=== PATIENT | male | born 1985 | race Caucasian/White ===

== ENCOUNTER 2019-12-31 23:53 | Emergency (ER) | payer SELFPAY ==
[2020-01-01 00:01] VITALS: BP 171/86; PULSE 92; RESP 18; TEMP 36.7; O2SAT 99
--- NOTE | 2020-01-01 01:29 | CTR_ITS ---
PROCEDURE INFORMATION: Exam: CT Abdomen And Pelvis With Contrast Exam date and time: 01/01/2020 1:46 AM Age: 34 years old Clinical indication: Abdominal pain; Generalized; Prior surgery; Surgery date: 6+ months; Surgery type: Gb/ stents in pancreas TECHNIQUE: Imaging protocol: Computed tomography of the abdomen and pelvis with intravenous contrast. Radiation optimization: All CT scans at this facility use at least one of these dose optimization techniques: automated exposure control; mA and/or kV adjustment per patient size (includes targeted exams where dose is matched to clinical indication); or iterative reconstruction. Contrast material: OMNI 300; Contrast volume: 95 ml; Contrast route: INTRAVENOUS (IV); COMPARISON: CT abdomen pelvis w con* [id number] 07/30/2018 9:42 PM RADIATION DOSE METRICS: Total DLP (mGy-cm): 1604.29 FINDINGS: Liver: Normal. No mass. Gallbladder and bile ducts: The gallbladder has been removed. No biliary ductal dilatation. Pancreas: Normal. No ductal dilation. Spleen: Normal. No splenomegaly. Adrenals: Normal. No mass. Kidneys and ureters: Normal. No hydronephrosis. Stomach and bowel: Mild dilatation of a few loops of small bowel is observed in the lower abdomen, which is nonspecific. No intestinal obstruction. Air and stool are present in the colon. Appendix: No evidence of appendicitis. Intraperitoneal space: Unremarkable. No free air. No significant fluid collection. Vasculature: Unremarkable. No abdominal aortic aneurysm. Lymph nodes: Unremarkable. No enlarged lymph nodes. Bladder: Unremarkable as visualized. Reproductive: Unremarkable as visualized. Bones/joints: Unremarkable. No acute fracture. Soft tissues: Unremarkable. CT/CT abdomen pelvis w con* [id number] IMPRESSION: No acute abnormality is seen in the abdomen or pelvis Radiation Dose CTDIVOL = (mGy): DLP = 1604.29 (mGy-cm)
[2020-01-01 01:44] LABS: Basophils % 0.6 %; Eosinophils # 0.3 10^3/uL (0.0-0.8); Eosinophils % 3.9 %; Hematocrit 46.1 % (42.0-52.0); Lymphocytes # 2.2 10^3/uL (0.8-4.8); Lymphocytes % 29.7 %; Mean Corpuscular HGB Conc 32.5 g/dL (30.0-36.0); Mean Corpuscular Hemoglobin 29.1 pg (28.0-34.0); Mean Corpuscular Volume 89.3 fL (80-94); Mean Platelet Volume 10.6 fL (7.4-10.4); Monocytes # 0.7 10^3/uL (0.2-0.9); Monocytes % 9.4 %; Neutrophils # 4.07 10^3/uL (1.8-7.7); Neutrophils % 56.3 %; Nucleated Red Blood Cells % 0 %; Platelet Count 246 10^3/cmm (130-400); Red Blood Count 5.16 10^6/uL (4.1-5.3); Red Cell Distribution Width 11.9 % (12.1-15.1); White Blood Count 7.2 10^3/uL (4.0-10.0)
--- NOTE | 2020-01-01 01:45 | ED_ITS ---
HPI - Abdominal Pain General: Chief Complaint: Abdominal Pain Stated Complaint: abd pain Time Seen by Provider: 01/01/20 01:21 Source: patient Mode of arrival: ambulatory Limitations: no limitations History of Present Illness: HPI narrative: Gagandeep is a nice 34-year-old male who comes in complaining of 2 hours of epigastric pain. He states this feels like his pancreatitis that he has had several times in the past. 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 He had to have a stent placed in 2005 and it was done at a [facility] he is uncertain which hospital in [place]. He does not follow-up there on a regular basis but at times he will get flareups of his pancreatitis. So far he is unaware of anything that makes his symptoms better or worse. Patient denies any fevers, chills, nausea, vomiting, diarrhea, constipation, urinary symptoms or chest pain/shortness of breath. Associated Symptoms: Denies chills, coffee ground emesis, constipation, GI cramping, diarrhea, dysuria, fever(s), heartburn, hematochezia, hematuria, hematemesis, melena, nausea, syncope and vomiting Review of Systems Const: Denies: fever(s), chills, body aches, fatigue, malaise or diaphoresis Eyes: Denies: change in vision, blurry vision, blind spots, photophobia, eye discharge or eye redness ENMT: Denies: throat pain, odynophagia, hoarseness, swelling of lips/tongue, oral sores, ear or mastoid pain, ear discharge, change in hearing or nasal discharge Card: Denies: chest pain, palpitations, irregular heart rhythm, edema, lightheadedness, syncope, pre-syncope, dyspnea on exertion or orthopnea Resp: Denies: dyspnea, productive cough, non-productive cough, wheezing, hemoptysis or chest congestion GI: Reports: abdominal pain; Denies: nausea, vomiting, hematemesis, coffee ground emesis, heartburn, diarrhea, constipation, GI cramping, hematochezia or melena : Denies: flank pain, dysuria, urinary frequency, urinary urgency or hematuria Musc: Denies: neck pain, back pain, extremity pain, extremity swelling, joint pain, joint swelling, joint redness, joint warmth or joint stiffness Skin/Breast: Denies: rash, pruritus, erythema, skin tenderness or jaundice Neuro: Denies: headache(s), numbness in extremities, weakness in extremities, sensory changes, lack of coordination, difficulty walking, dizziness, vertigo, confusion, Slurred speech present or seizure-like activity Samy/Lymph: Denies: easy bruising, easy bleeding, petechiae, purpura or enlarged lymph nodes All/Imm: Denies: urticaria, throat swelling, tongue swelling, facial swelling or acute wheezing PFSH ED PFSH: Medical History Pancreatitis, recurrent Presence of pancreatic duct stent Surgical History S/P cholecystectomy Social History Current gender identity: Male Physical Exam Const: COMMON NORMALS: no acute distress, patient oriented x3, no limitations, healthy appearing and well nourished GENERAL APPEARANCE: cooperative, well kempt and well developed HENMT: COMMON NORMALS: normocephalic, atraumatic, external ears normal, EAC's normal and Normal external nose present HEAD & SCALP: normal to inspection, normocephalic and atraumatic FACE & SINUS: normal facial exam and face symmetric NOSE: Normal external nose present and Normal nares present EXTERNAL EAR: Yes external ears normal EXTERNAL AUDITORY CANAL: EAC's normal MOUTH: Normal oral and palatal mucosa present, lip normal and tongue normal Eye: COMMON NORMALS: Equal, round and reactive pupils present and conjunctivae normal GENERAL EYE: appearance normal, both eyes and all related structures ALIGNMENT: Yes alignment normal PERIORBITAL: periorbital findings normal EYELID: eyelids normal CONJUNCTIVA: Yes conjunctivae normal SCLERA: sclerae normal PUPIL: Yes Equal, round and reactive pupils present Neck/C-Spine: COMMON NORMALS: full ROM, no lymphadenopathy, supple, no meningeal signs and no JVD GENERAL: Yes normal visual inspection and Yes trachea midline Chest: COMMONS NORMALS: normal inspection of the chest and normal palpation of entire chest wall Resp: COMMON NORMALS: normal respiratory effort, No retractions and No use of accessory muscles EFFORT & INSPECTION: Yes able to speak in complete sentences and Yes symmetric chest movement AUSCULTATION: no crackles, no rales, no rhonchi and no wheezes Cardio: COMMON NORMALS: no JVD, regular rate, regular rhythm, S1 normal heart sound present and S2 normal heart sound present RATE: regular rate RHYTHM: regular rhythm HEART SOUNDS: S1 normal heart sound present, S2 normal heart sound present, no click, no gallops, no murmurs, no rubs and abnormal split S2 GI: COMMON NORMALS: Soft to palpation and No hepatosplenomegaly present PALPATION: Yes Soft to palpation, No Tenderness to palpation present (GI), No Guarding due to palpation present (GI), No Rigid due to palpation, Yes No hepatosplenomegaly present, No Hernia present, No Palpable mass present and No Pulsatile mass present : COMMON NORMALS: Yes no CVA tenderness BLADDER/KIDNEY EXAM: Yes no CVA tenderness Back/Pelvis: COMMON NORMALS: no CVA tenderness, thoracic and lumbar spine normal to inspection, no thoracic nor lumbar tenderness and thoraco-lumbar ROM normal Extremity: COMMON NORMALS: normal to inspection, full ROM, capillary refill normal, no joint enlargement, no clubbing, cyanosis or edema and no calf tenderness Neuro: COMMON NORMALS: patient oriented x3, CN's II-XII intact bilaterally, moves all extremities, no focal motor deficits and no sensory deficits noted MENINGEAL SIGNS: Yes no meningeal signs SPEECH: speech normal Psych: COMMON NORMALS: mental status grossly normal, Normal thought process present, cooperative, normal affect, speech normal and activity/motor behavior normal APPEARANCE: Yes well kempt SPEECH: Yes normal speech THOUGHT PROCESS: Normal thought process present Skin: COMMON NORMALS: no rashes or lesions noted, turgor normal, no jaundice, no petechiae and no mottling GENERAL SKIN EXAM: no rashes or lesions noted and turgor normal Course Vital Signs: Vital signs: Vital Signs Temperature 98.1 F 01/01/20 00:01 Pulse Rate 17 L 01/01/20 03:12 Respiratory Rate 77 H 01/01/20 03:12 Blood Pressure 153/98 01/01/20 03:12 Pulse Oximetry 99 01/01/20 03:12 MDM - Abdominal Pain MDM Narrative: Medical decision making narrative: Gagandeep is a 34-year-old male who comes in complaining of recurrent abdominal pain. He believes this is his pancreatitis pain. Patient has a normal lipase, normal labs and a normal CT at this time. He is reassured to hear this and actually feels better but he has received pain medication. He agrees to return should his symptoms change or worsen. He denies any chest pain or shortness of breath. I see no sign of a cute coronary syndrome, acute abdominal catastrophe or other problems at this time. He agrees that if his pain is even just mild but last more than next 8 to 12 hours he will return for recheck. Lab Data: Attestation: I reviewed the patient's lab results. Labs: Lab Results 01/01/20 01/01/20 01/01/20 Range/Units 01:35 01:35 01:35 WBC 7.2 (4.0-10.0) 10^3/ uL RBC 5.16 (4.1-5.3) 10^6/u L Hgb 15.0 (11.7-16.6) g/dL Hct 46.1 (42.0-52.0) % MCV 89.3 (80-94) fL MCH 29.1 (28.0-34.0) pg MCHC 32.5 (30.0-36.0) g/dL RDW 11.9 L (12.1-15.1) % Plt Count 246 (130-400) 10^3/c mm MPV 10.6 H (7.4-10.4) fL Neut % (Auto) 56.3 % Lymph % (Auto) 29.7 % Taylor % (Auto) 9.4 % Eos % (Auto) 3.9 % Baso % (Auto) 0.6 % Neut # (Auto) 4.07 (1.8-7.7) 10^3/u L Lymph # (Auto) 2.2 (0.8-4.8) 10^3/u L Taylor # (Auto) 0.7 (0.2-0.9) 10^3/u L Eos # (Auto) 0.3 (0.0-0.8) 10^3/u L Baso # (Auto) 0.0 (0.0-0.1) 10^3/u L Nucleated RBC % (a uto) 0 % Nucleated RBCs # 0.0 /100WBC Sodium 140 (136-145) mmol/L Potassium 3.9 (3.5-5.1) mmol/L Chloride 104 (98-107) mmol/L Carbon Dioxide 26 (22-29) mmol/L Anion Gap 13.9 (5-19) BUN 12 (6-20) mg/dL Creatinine 1.0 (0.7-1.2) mg/dL GFR Calculation 86.6 L (90-130) mL/min Glucose 106 (65-115) mg/dL Calculated Osmolal ity 287 (285-295) mOsm/k g Lactic Acid 1.1 (0.5-2.2) mmol/L Calcium 9.7 (8.5-10.5) mg/dL Magnesium 2.1 (1.7-2.3) mg/dL Total Bilirubin 0.6 (0.15-1.2) mg/dL AST 28 (0-40) U/L ALT 22 (0-41) U/L Alkaline Phosphata se 100 (40-130) IU/L Total Protein 7.4 (6.6-8.7) g/dL Albumin 5.0 (3.5-5.2) g/dL Globulin 2.4 (1.3-4.6) g/dL Triglycerides 73 (0-150) mg/dL Lipase 22 (13-60) U/L Urine Color (Yellow) Urine Appearance (CLEAR) Urine pH (5-7) Ur Specific Gravit y (1.005-1.030) Urine Protein (Negative) Urine Glucose (UA) (Normal) Urine Ketones (Negative) Urine Blood (Negative) Urine Nitrate (Negative) Urine Bilirubin (NEGATIVE) Urine Urobilinogen (Negative) mg/dL Ur Leukocyte Soha ase (Negative) Urine RBC (0-2) /hpf Urine WBC (0-5) /hpf Ur Squamous Epith Cells (0-5) Ur Transition Epit h Cell /hpf Ur Renal Epithelia l Cell /hpf Calcium Oxalate Cr ystal /hpf Urine Bacteria (NONE) Urine Sperm Ur Oval Fat Bodies Ethyl Alcohol < 10 (0-10) mg/dL 01/01/20 Range/Units 01:45 WBC (4.0-10.0) 10^3/ uL RBC (4.1-5.3) 10^6/u L Hgb (11.7-16.6) g/dL Hct (42.0-52.0) % MCV (80-94) fL MCH (28.0-34.0) pg MCHC (30.0-36.0) g/dL RDW (12.1-15.1) % Plt Count (130-400) 10^3/c mm MPV (7.4-10.4) fL Neut % (Auto) % Lymph % (Auto) % Taylor % (Auto) % Eos % (Auto) % Baso % (Auto) % Neut # (Auto) (1.8-7.7) 10^3/u L Lymph # (Auto) (0.8-4.8) 10^3/u L Taylor # (Auto) (0.2-0.9) 10^3/u L Eos # (Auto) (0.0-0.8) 10^3/u L Baso # (Auto) (0.0-0.1) 10^3/u L Nucleated RBC % (a uto) % Nucleated RBCs # /100WBC Sodium (136-145) mmol/L Potassium (3.5-5.1) mmol/L Chloride (98-107) mmol/L Carbon Dioxide (22-29) mmol/L Anion Gap (5-19) BUN (6-20) mg/dL Creatinine (0.7-1.2) mg/dL GFR Calculation (90-130) mL/min Glucose (65-115) mg/dL Calculated Osmolal ity (285-295) mOsm/k g Lactic Acid (0.5-2.2) mmol/L Calcium (8.5-10.5) mg/dL Magnesium (1.7-2.3) mg/dL Total Bilirubin (0.15-1.2) mg/dL AST (0-40) U/L ALT (0-41) U/L Alkaline Phosphata se (40-130) IU/L Total Protein (6.6-8.7) g/dL Albumin (3.5-5.2) g/dL Globulin (1.3-4.6) g/dL Triglycerides (0-150) mg/dL Lipase (13-60) U/L Urine Color Dark yellow (Yellow) Urine Appearance Clear (CLEAR) Urine pH 5 (5-7) Ur Specific Gravit y 1.030 (1.005-1.030) Urine Protein Neg (Negative) Urine Glucose (UA) Norm (Normal) Urine Ketones Negative (Negative) Urine Blood Neg (Negative) Urine Nitrate Negative (Negative) Urine Bilirubin Neg (NEGATIVE) Urine Urobilinogen Norm (Negative) mg/dL Ur Leukocyte Soha ase Negative (Negative) Urine RBC 0-4 H (0-2) /hpf Urine WBC None (0-5) /hpf Ur Squamous Epith Cells 5-10 H (0-5) Ur Transition Epit h Cell None /hpf Ur Renal Epithelia l Cell 0 /hpf Calcium Oxalate Cr ystal 5-10 H /hpf Urine Bacteria 1+ H (NONE) Urine Sperm 1+ Ur Oval Fat Bodies None Ethyl Alcohol (0-10) mg/dL Imaging Data ^: CT Abd/Pel: Radiologist's impression: [place] [address] CT Scan Report Signed Patient: Gagandeep Gonzalez Unit #: [id number] : 1985 Age/Sex: 34 / M ADM Date: 12/31/19 Loc: ER Room/Bed: Attending Dr: Ordering Provider/Ordering MD: Mercedes Vallejo DO Date of Service: 01/01/20 Procedure(s): CT abdomen pelvis w con* [id number] Accession Number(s): [id number] Report Number: [id number] PROCEDURE INFORMATION: Exam: CT Abdomen And Pelvis With Contrast Exam date and time: 01/01/2020 1:46 AM Age: 34 years old Clinical indication: Abdominal pain; Generalized; Prior surgery; Surgery date: 6+ months; Surgery type: Gb/ stents in pancreas TECHNIQUE: Imaging protocol: Computed tomography of the abdomen and pelvis with intravenous contrast. Radiation optimization: All CT scans at this facility use at least one of these dose optimization techniques: automated exposure control; mA and/or kV adjustment per patient size (includes targeted exams where dose is matched to clinical indication); or iterative reconstruction. Contrast material: OMNI 300; Contrast volume: 95 ml; Contrast route: INTRAVENOUS (IV); COMPARISON: CT abdomen pelvis w con* [id number] 07/30/2018 9:42 PM RADIATION DOSE METRICS: Total DLP (mGy-cm): 1604.29 FINDINGS: Liver: Normal. No mass. Gallbladder and bile ducts: The gallbladder has been removed. No biliary ductal dilatation. Pancreas: Normal. No ductal dilation. Spleen: Normal. No splenomegaly. Adrenals: Normal. No mass. Kidneys and ureters: Normal. No hydronephrosis. Stomach and bowel: Mild dilatation of a few loops of small bowel is observed in the lower abdomen, which is nonspecific. No intestinal obstruction. Air and stool are present in the colon. Appendix: No evidence of appendicitis. Intraperitoneal space: Unremarkable. No free air. No significant fluid collection. Vasculature: Unremarkable. No abdominal aortic aneurysm. Lymph nodes: Unremarkable. No enlarged lymph nodes. Bladder: Unremarkable as visualized. Reproductive: Unremarkable as visualized. Bones/joints: Unremarkable. No acute fracture. Soft tissues: Unremarkable. CT/CT abdomen pelvis w con* [id number] IMPRESSION: No acute abnormality is seen in the abdomen or pelvis Radiation Dose CTDIVOL = (mGy): DLP = 1604.29 (mGy-cm) Dictated By: Onur Vega MD Signed By: Onur Vega MD Signed Date/Time: 01/01/20254 DD/ 2 Discharge Plan Discharge Patient Disposition: Home, Self-Care Clinical Impression: Abdominal pain Qualifiers: Abdominal location: epigastric Qualified Code(s): R10.13 - Epigastric pain Condition: Stable Discharge Orders: Discharge Order (Routine); Ordered 01/01/20 Ordered By: Mercedes Vallejo Referrals: Nicko Donis MD [Physician] - 1-3 days Discharge Diet: Advance as tolerated and Clear Liquid Discharge Activity: Resume usual activity Patient Instructions: Abdominal Pain (ED) Activity Restrictions/Additional Instructions: Please return to the ER immediately for any of the signs or symptoms listed on your discharge instruction sheets, worsening/changing of your symptoms, you are not getting better as quickly as expected, or for ANY other cause or concerns. If you are still having pain beyond the next 8 to 10 hours return to the ER for recheck. Discharge Date/Time: 01/01/20 03:15 Coding Level of Care Code ED Scutcher Tender for Chg Fwd Exam Comprehensive
[2020-01-01 01:46] VITALS: RESP 17
[2020-01-01] MEDS: ondansetron 2 mg/ML SDV 2 mL 4 MG IVP (01:46)
[2020-01-01] MEDS: morphine 4 mg/mL SDV 1 mL IVP (01:46)
[2020-01-01] MEDS: sodium chloride 0.9% 1,000 ML 100 ML IV (01:47)
[2020-01-01] MEDS: sodium chloride 0.9% 1,000 ML 999 ML IV (01:47)
[2020-01-01 01:52] VITALS: BP 143/107; PULSE 93; RESP 22; O2SAT 97
[2020-01-01] MEDS: iohexol 300 mg/mL 100 mL Btl IV (02:02)
[2020-01-01 02:05] LABS: Alanine Aminotransferase 22 U/L (0-41); Alkaline Phosphatase 100 IU/L (40-130); Anion Gap 13.9 (5-19); Aspartate Amino Transferase 28 U/L (0-40); Blood Urea Nitrogen 12 mg/dL (6-20); Calcium 9.7 mg/dL (8.5-10.5); Carbon Dioxide 26 mmol/L (22-29); Chloride 104 mmol/L (98-107); Globulin 2.4 g/dL (1.3-4.6); Glomerular Filtration Rate 86.6 mL/min (90-130); Glucose 106 mg/dL (65-115); Lipase 22 U/L (13-60); Magnesium 2.1 mg/dL (1.7-2.3); Osmolality Calculated 287 mOsm/kg (285-295); Potassium 3.9 mmol/L (3.5-5.1); Sodium 140 mmol/L (136-145); Total Bilirubin 0.6 mg/dL (0.15-1.2); Total Protein 7.4 g/dL (6.6-8.7); Triglycerides 73 mg/dL (0-150)
[2020-01-01 02:13] LABS: Lactic Sepsis W/Reflex 1.1 mmol/L (0.5-2.2)
[2020-01-01 02:18] LABS: Alcohol Level < 10 mg/dL (0-10)
[2020-01-01 02:43] LABS: Bilirubin Urine Neg (NEGATIVE); Blood Urine Neg (Negative); Glucose Urine UA Norm (Normal); Ketones Urine Negative (Negative); Leukocyte Esterase Urine Negative (Negative); Nitrate Urine Negative (Negative); Protein Urine Neg (Negative); Urine Appearance Clear (CLEAR); Urine Color Dark Yellow (Yellow); Urobilinogen Urine Norm (Negative); pH Urine 5 (5-7)
[2020-01-01 02:49] VITALS: BP 153/91; PULSE 87; RESP 17; O2SAT 97
[2020-01-01 02:52] LABS: RBC Urine 0-4 /hpf (0-2); Renal Epithelial Cells Urine 0 /hpf
[2020-01-01 02:53] LABS: Bacteria Urine 1+
[2020-01-01 02:54] LABS: Add Urine Culture? No; Sperm Urine 1+
[2020-01-01 03:12] VITALS: BP 153/98; PULSE 17; RESP 77; O2SAT 99
== END 2020-01-01 03:15 | disposition home or self-care (01) ==
PROVIDERS: Emergency Provider Emergency Medicine
DX: R10.13 Epigastric pain (principal)
CPT/HCPCS: 12345; 74177; 80053; 80307; 81001; 83605; 83690; 83735; 84478; 85025; 96361; 96374; 96375; 99283; J2270; J2405; J7030; Q9967

== ENCOUNTER → 2020-03-10 13:16 | Outpatient (BNVA) | payer OTHER, SELFPAY | PROVIDERS: Visit Provider Nurse Practitioner | DX: Z20.828 Contact with and (suspected) exposure to other viral communicable diseases (principal) | CPT/HCPCS: 87635 ==

== ENCOUNTER 2022-05-17 10:23 | Emergency (ER) | payer SELFPAY ==
[2022-05-17 10:38] VITALS: BP 163/85; PULSE 74; RESP 14; TEMP 36.8; O2SAT 97; BMI 33.7
--- NOTE | 2022-05-17 11:19 | W.ED.DENTAL ---
HPI - Dental/Oral General: Chief complaint: Dental/Oral Stated complaint: tooth pain Time Seen by Provider: 05/17/22 10:57 History of Present Illness: Patient is a 36-year-old male who comes to the ED with dental pain. Symptoms started 4 to 5 days ago. Patient said he has had the same dental pain a little over a month ago and was put on antibiotic his symptoms improved. He is currently trying to get set up with a dentist. Dental pain is rated a 2 out of 10 and is located in the left lower jaw. He reports some mild swelling on his left lower mandible. Denies any other symptoms. Associated symptoms: Denies fever(s) or odynophagia Review of Systems Const: Denies: fever(s), chills or fatigue Eyes: Denies: change in vision or eye discomfort ENMT: Reports: dental pain; Denies: throat pain, odynophagia, nasal discharge or nasal congestion Card: Denies: chest pain, palpitations, edema, swelling of feet/ankles, dyspnea on exertion or orthopnea Resp: Denies: dyspnea, productive cough or non-productive cough GI: Denies: abdominal pain, nausea, vomiting, diarrhea, constipation or hematochezia : Denies: flank pain, difficulty urinating, dysuria or hematuria Musc: Denies: neck pain, back pain or extremity swelling Skin/Breast: Denies: rash or new lesions Neuro: Denies: headache(s), numbness in extremities or weakness in extremities [facility] ED PFSH: Medical History Pancreatitis, recurrent Presence of pancreatic duct stent Surgical History S/P cholecystectomy Social History Current gender identity: Male Physical Exam Const: COMMON NORMALS: no acute distress, patient oriented x3 and alert GENERAL APPEARANCE: cooperative and comfortable HENMT: COMMON NORMALS: normocephalic HEAD & SCALP: normocephalic FACE & SINUS: edema on the left mandible MOUTH: Normal oral and palatal mucosa present TEETH & GINGIVA: Yes poor dentition THROAT: posterior oropharynx normal and uvula midline Neck/C-Spine: COMMON NORMALS: supple GENERAL: Yes normal visual inspection Resp: COMMON NORMALS: normal respiratory effort, No retractions, No use of accessory muscles and clear to auscultation bilaterally AUSCULTATION: clear to auscultation bilaterally Cardio: COMMON NORMALS: regular rate, regular rhythm, S1 normal heart sound present, S2 normal heart sound present, No gallops present (Cardio), No clicks present (Cardio), No murmurs present (Cardio) and Peripheral pulses 2+ throughout RATE: regular rate RHYTHM: regular rhythm HEART SOUNDS: S1 normal heart sound present and S2 normal heart sound present PERIPHERAL PULSES: Peripheral pulses 2+ throughout GI: COMMON NORMALS: Normal to inspection, nondistended, normoactive bowel sounds present, Soft to palpation, non-tender and no masses PALPATION: Yes Soft to palpation : COMMON NORMALS: Yes no CVA tenderness BLADDER/KIDNEY EXAM: Yes no CVA tenderness Back/Pelvis: COMMON NORMALS: no CVA tenderness Extremity: COMMON NORMALS: normal to inspection Neuro: COMMON NORMALS: patient oriented x3 SENSORIUM/ORIENTATION: Yes alert GAIT: Yes Normal gait present Skin: GENERAL SKIN EXAM: dry skin Course Vital Signs: Vital signs: Vital Signs Temperature 98.2 F 05/17/22 10:38 Pulse Rate 84 05/17/22 11:48 Respiratory Rate 16 05/17/22 11:48 Blood Pressure 165/112 05/17/22 11:48 Pulse Oximetry 95 05/17/22 11:48 Oxygen Delivery Me thod 05/17/22 10:38 [facility] - Dental/Oral Medical Decision Making Patient is a 36-year-old male who comes to the ED with dental pain. Symptoms started 4 to 5 days ago. Patient said he has had the same dental pain a little over a month ago and was put on antibiotic his symptoms improved. He is currently trying to get set up with a dentist. Dental pain is rated a 2 out of 10 and is located in the left lower jaw. He reports some mild swelling on his left lower mandible. Denies any other symptoms. Vitals are stable. Patient appears nontoxic and in no acute distress or pain. He has poor dentition with left mandible mild swelling, but the rest of exam is benign. Patient was diagnosed with dental infection and was discharged home. He was sent home with a prescription for clindamycin and ibuprofen 800 mg to help with pain. Follow-up with dentist as soon as possible for further evaluation. Patient understood and agreed with plan. Discharge Plan Discharge Patient Disposition: Home Clinical Impression: Dental infection Condition: Stable Prescriptions: New clindamycin HCl 150 mg capsule 300 mg PO QID 7 Days Qty: 56 0RF ibuprofen 800 mg tablet 800 mg PO Q8H PRN (Reason: pain) Qty: 20 0RF No Action lisinopril 5 mg tablet 5 mg PO DAILY hydrochlorothiazide 12.5 mg tablet 12.5 mg PO DAILY amoxicillin-pot clavulanate 875-125 mg tablet 1 tab PO BID 7 Days Qty: 14 0RF Discharge Orders: Discharge ED (Routine); Ordered 05/17/22 Ordered By: Jack Conte Discharge Diet: Regular Discharge Activity: Increase activity as tolerated Patient Instructions: Dental Abscess (ED) Activity Restrictions/Additional Instructions: Follow-up with dentist as soon as possible to have dental pain further evaluated. Take medications as prescribed. Return to the ER or your medical provider if condition worsens. Please read and understand discharge instructions. Thank you for choosing [facility] for your healthcare needs today. Please realize this is an emergency room and that we are providing you with a medical screening exam and this may not be complete and all inclusive of all the testing and or work up that you may need to determine your ailment or severity of your illness. It is very important that you follow up as instructed or that you return to the Emergency Department should you have concerns or if your condition changes or worsens in any way. Stand Alone Forms: Work/School Release Coding Level of Care Code ED Flight Information Expediter for [employer] Exam Comprehensive
[2022-05-17 11:48] VITALS: BP 165/112; PULSE 84; RESP 16; O2SAT 95
== END 2022-05-17 11:49 | disposition home or self-care (01) ==
PROVIDERS: Emergency Provider Physician Assistant
DX: K04.7 Periapical abscess without sinus (principal)
CPT/HCPCS: 99283

== ENCOUNTER 2022-07-09 16:40 | Emergency (ER) | payer SELFPAY ==
[2022-07-09 16:45] VITALS: BP 134/70; PULSE 88; RESP 16; TEMP 36.6; O2SAT 97
--- NOTE | 2022-07-09 22:45 | W.ED.GENADLT ---
HPI - General Adult General: Chief complaint: General Medical Stated complaint: N/V Time Seen by Provider: 07/09/22 17:09 History of Present Illness: Patient is in today for a note to go back to work. He reports that this morning he woke up was nauseated did vomit 1 time. He reports he is felt better since after vomiting; however he had already called into work. He reports that they require a note for him to return tomorrow. He denies any further symptoms. He denies fever, chills. He is eating and drinking without issue. Associated symptoms: Deny chest pain, dyspnea, headache(s), nausea, palpitations, syncope or vomiting Review of Systems Const: Denies: fever(s), chills or body aches Eyes: Denies: change in vision or blurry vision ENMT: Denies: throat pain Card: Denies: chest pain, palpitations, irregular heart rhythm, lightheadedness or syncope Resp: Denies: dyspnea, productive cough or non-productive cough GI: Reports: other (Reports nausea and 1 episode of emesis first thing this morning); Denies: abdominal pain, nausea or vomiting : Denies: flank pain, dysuria, urinary frequency, urinary urgency or urinary hesitancy Musc: Denies: neck pain or back pain Neuro: Denies: headache(s), numbness in extremities or weakness in extremities PFS ED PFSH: Medical History Pancreatitis, recurrent Presence of pancreatic duct stent Surgical History S/P cholecystectomy Social History Current gender identity: Male Physical Exam Const: COMMON NORMALS: no acute distress, patient oriented x3 and alert GENERAL APPEARANCE: cooperative ORIENTATION/CONSCIOUSNESS: Yes awake, Yes oriented to person, Yes oriented to place and Yes oriented to time HENMT: COMMON NORMALS: EAC's normal and TM's normal bilaterally EXTERNAL AUDITORY CANAL: EAC's normal TYMPANIC MEMBRANE: TM's normal bilaterally MOUTH: Normal oral and palatal mucosa present THROAT: posterior oropharynx normal Eye: COMMON NORMALS: Equal, round and reactive pupils present, EOMs intact bilaterally and conjunctivae normal GENERAL EYE: appearance normal, both eyes and all related structures ALIGNMENT: Yes alignment normal CONJUNCTIVA: Yes conjunctivae normal SCLERA: sclerae normal PUPIL: Yes Equal, round and reactive pupils present Neck/C-Spine: COMMON NORMALS: full ROM Resp: COMMON NORMALS: normal respiratory effort, No retractions, No use of accessory muscles and clear to auscultation bilaterally EFFORT & INSPECTION: Yes symmetric chest movement AUSCULTATION: clear to auscultation bilaterally Cardio: COMMON NORMALS: regular rate, regular rhythm, S1 normal heart sound present and S2 normal heart sound present RATE: regular rate RHYTHM: regular rhythm HEART SOUNDS: S1 normal heart sound present and S2 normal heart sound present GI: COMMON NORMALS: Normal to inspection, nondistended, normoactive bowel sounds present, Soft to palpation, non-tender, No hepatosplenomegaly present, no masses and no bruits INSPECTION: Yes normal to inspection PALPATION: Yes Soft to palpation and Yes No hepatosplenomegaly present : COMMON NORMALS: Yes no CVA tenderness BLADDER/KIDNEY EXAM: Yes no CVA tenderness Back/Pelvis: COMMON NORMALS: no CVA tenderness Neuro: COMMON NORMALS: patient oriented x3 SENSORIUM/ORIENTATION: Yes alert, Yes oriented to person, Yes oriented to place and Yes oriented to time Psych: COMMON NORMALS: cooperative Course Vital Signs: Vital signs: Vital Signs Temperature 97.9 F 07/09/22 16:45 Pulse Rate 88 07/09/22 16:45 Respiratory Rate 16 07/09/22 16:45 Blood Pressure 134/70 07/09/22 16:45 Pulse Oximetry 97 07/09/22 16:[address] [facility] - General Adult Medical Decision Making Patient is in for an episode of nausea and vomiting he had just upon awakening this morning. He reports that after he vomited he has felt fine and had no other issues with nausea or vomiting. He denies fever or chills. He states that his work requires a note for him to return tomorrow. He is requesting that he be allowed to return to work tomorrow. Vital signs are stable patient is in no acute distress. Provided him with a work note allowing him to return to work now. Advised him to follow-up with his primary care provider or return to the ER as needed for new or returning symptoms Discharge Plan Discharge Patient Disposition: Home Clinical Impression: Worried well Condition: Stable Prescriptions: No Action lisinopril 5 mg tablet 5 mg PO DAILY hydrochlorothiazide 12.5 mg tablet 12.5 mg PO DAILY amoxicillin-pot clavulanate 875-125 mg tablet 1 tab PO BID 7 Days Qty: 14 0RF ibuprofen 800 mg tablet 800 mg PO Q8H PRN (Reason: pain) Qty: 20 0RF Discharge Orders: Discharge ED (Routine); Ordered 07/09/22 Ordered By: Kelly Liu Discharge Diet: Usual diet Discharge Activity: Resume usual activity Stand Alone Forms: Work/School Release 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
== END 2022-07-09 17:31 | disposition home or self-care (01) ==
PROVIDERS: Emergency Provider Nurse Practitioner Family
DX: Z03.89 Encounter for observation for other suspected diseases and conditions ruled out (principal)
CPT/HCPCS: 99282

== ENCOUNTER 2022-10-23 12:02 | Emergency (ER) | payer OTHER, SELFPAY ==
[2022-10-23 12:32] VITALS: BP 162/82; PULSE 74; RESP 18; TEMP 36.7; O2SAT 99; BMI 33.2
--- NOTE | 2022-10-23 12:43 | XRR_ITS ---
PROCEDURE INFORMATION: Exam: XR Left Knee Exam date and time: 10/23/2022 12:46 PM Age: 37 years old Clinical indication: Pain; Knee; Left TECHNIQUE: Imaging protocol: Radiologic exam of the left knee. Views: 3 views. COMPARISON: No relevant prior studies available. FINDINGS: Bones/joints: No fracture. No dislocation. There is tricompartmental osteoarthritis, most prominently in the lateral femoral tibial joint compartment. No joint effusion evident. Soft tissues: No acute soft tissue abnormality. XR/XR knee LT 3V* [id number] IMPRESSION: Osteoarthritis.
--- NOTE | 2022-10-23 13:01 | W.ED.EXTPRO ---
HPI - Extremity Problem General: Chief complaint: Extremity Injury, Lower Stated complaint: left knee pain Time Seen by Provider: 10/23/22 12:41 Source: patient Mode of arrival: ambulatory History of Present Illness: 37-year-old male presents emergency room planing of left knee pain. He strained the knee this morning thought he had potentially dislocated he has been able to walk on it. Prior to that he says he had knee pain for several months. He cannot describe the particular injury very well. He denies lacerations or falls. No previous injury to the knee. MD Complaint: joint pain Onset (ago): month(s) Pain Consistency: constant Quality: aching Relieving factors: nothing Exacerbating factors: nothing Associated symptoms: Deny arthralgias, chest pain, fever(s), myalgias, rash or short of breath Review of Systems Const: Denies: fever(s) or chills ENMT: Denies: throat pain, ear or mastoid pain, nasal discharge or nasal congestion Card: Denies: chest pain Resp: Denies: dyspnea, productive cough or non-productive cough GI: Denies: abdominal pain, nausea, vomiting, hematemesis, coffee ground emesis, diarrhea, constipation, bloating, hematochezia or melena : Denies: flank pain, dysuria, urinary frequency or urinary urgency Skin/Breast: Denies: rash PFSH ED PFSH: Medical History Pancreatitis, recurrent Presence of pancreatic duct stent Surgical History S/P cholecystectomy Social History Current gender identity: Male Physical Exam Const: GENERAL APPEARANCE: cooperative and comfortable ORIENTATION/CONSCIOUSNESS: Yes awake, Yes oriented to person, Yes oriented to place and Yes oriented to time HENMT: COMMON NORMALS: normocephalic, atraumatic and hearing grossly normal bilaterally HEAD & SCALP: normocephalic and atraumatic Resp: COMMON NORMALS: normal respiratory effort, No retractions, No use of accessory muscles and clear to auscultation bilaterally AUSCULTATION: clear to auscultation bilaterally Cardio: COMMON NORMALS: regular rate, regular rhythm and No murmurs present (Cardio) RATE: regular rate RHYTHM: regular rhythm Extremity: COMMON NORMALS: normal to inspection, capillary refill normal, no clubbing, cyanosis or edema, no calf tenderness and no pedal edema OTHER: Examination left knee no ligamentous instability or laxity. No joint deformity drawer and Avril's test are negative. He has some bruising in the anterior lindsey which she states he gets from work. No lacerations no open injuries or sores. Neuro: SENSORIUM/ORIENTATION: Yes oriented to person, Yes oriented to place and Yes oriented to time Skin: COMMON NORMALS: no rashes or lesions noted GENERAL SKIN EXAM: no rashes or lesions noted Course Vital Signs: Vital signs: Vital Signs Temperature 98.0 F 10/23/22 12:32 Pulse Rate 74 10/23/22 12:32 Respiratory Rate 18 10/23/22 12:32 Blood Pressure 162/82 10/23/22 12:32 Pulse Oximetry 99 10/23/22 12:32 Oxygen Delivery Me thod Room Air 10/23/22 12:32 MDM - Extremity (Nontraumatic) Medical Decision Making No obvious deformity. Review of x-ray there is no acute fracture there is narrowing of the joint space. No evidence of DVT no significant edema or swelling. No excessive pain with passive range of motion at the ankle. We will discharge patient home anti-inflammatories set up for primary care. Lab Data Radiology Impressions Knee X-Ray 10/23/22 12:43 IMPRESSION: Osteoarthritis. Discharge Plan Discharge Patient Disposition: Home Clinical Impression: Strain of left knee Condition: Stable Prescriptions: New diclofenac sodium 75 mg tablet,delayed release (DR/EC) 75 mg PO Q12H PRN (Reason: pain) Qty: 20 0RF Discharge Orders: Discharge ED (Routine); Ordered 10/23/22 Ordered By: Jignesh Cotton Discharge Diet: Usual diet Discharge Activity: Resume usual activity Patient Instructions: Opioid Safety, Pain Management Activity Restrictions/Additional Instructions: You are seen today for left knee pain. Your x-ray showed significant narrowing of the medial compartment of the left knee but there is no evidence of fracture. Prescription given for anti-inflammatories Case management will help you arrange for follow-up with a primary care physician. 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
--- NOTE | 2022-10-25 11:18 | PC.NURSE ---
CM attempted to contact patient to set him up with a PCP. Patient did not answer. Left a message for him to return call.
== END 2022-10-23 13:25 | disposition home or self-care (01) ==
PROVIDERS: Emergency Provider Family Medicine
DX: S86.912A Strain of unspecified muscle(s) and tendon(s) at lower leg level, left leg, initial encounter (principal); X58.XXXA Exposure to other specified factors, initial encounter
CPT/HCPCS: 73562; 99283

== ENCOUNTER 2023-01-22 09:50 | Emergency (ER) | payer SELFPAY ==
--- NOTE | 2023-01-22 10:15 | W.ED.ABDPA2 ---
HPI - Abdominal Pain General: Chief Complaint: Abdominal Pain Stated Complaint: nausea, abd pain Time Seen by Provider: 01/22/23 10:08 History of Present Illness: Mr. Montes De Oca is a 37-year-old gentleman with history of recurrent pancreatitis and pancreatic stents presenting to the emergency department for evaluation of abdominal pain. Notes gradually worsening symptoms over some weeks. Initially mild symptoms worse with eating however it subsequently become more constant and more severe limiting his ability to eat and drink. Has had nausea and occasional vomiting. Has pain first thing in the morning and throughout the day. Does notice worse pain though not immediately with eating but shortly after. Moderate to severe in intensity. No other specific changes in health, exacerbating, or alleviating factors identified. Onset (ago): week(s) Pain Consistency: other (Worsening) Location: Epigastric Severity: moderate Quality: stabbing and sharp Exacerbating factors: eating Associated Symptoms: Reports nausea, poor appetite and vomiting Review of Systems General: Reports: 10 or more systems reviewed and unremarkable except in HPI and below GI: Reports: nausea and vomiting PFSH ED PFSH: Medical History Pancreatitis, recurrent Presence of pancreatic duct stent Psychiatric care Surgical History S/P cholecystectomy Social History Current gender identity: Male Physical Exam Const: COMMON NORMALS: alert GENERAL APPEARANCE: cooperative and well developed HENMT: COMMON NORMALS: normocephalic and atraumatic HEAD & SCALP: normocephalic and atraumatic Eye: COMMON NORMALS: conjunctivae normal CONJUNCTIVA: Yes conjunctivae normal SCLERA: sclerae normal Neck/C-Spine: COMMON NORMALS: supple GENERAL: Yes trachea midline Resp: COMMON NORMALS: clear to auscultation bilaterally EFFORT & INSPECTION: Yes able to speak in complete sentences AUSCULTATION: clear to auscultation bilaterally Cardio: COMMON NORMALS: regular rate and regular rhythm RATE: regular rate RHYTHM: regular rhythm GI: COMMON NORMALS: Soft to palpation PALPATION: Yes Soft to palpation, Yes Tenderness to palpation present (GI), No Guarding due to palpation present (GI) and No Rigid due to palpation Extremity: GENERAL: Yes normal exam except as noted and No edema Neuro: COMMON NORMALS: moves all extremities SENSORIUM/ORIENTATION: Yes alert and No Orientation impaired Psych: COMMON NORMALS: mental status grossly normal and Normal thought process present THOUGHT PROCESS: Normal thought process present Course Vital Signs: Vital signs: Vital Signs Temperature 97.5 F L 01/22/23 10:32 Pulse Rate 70 01/22/23 10:32 Respiratory Rate 16 01/22/23 10:32 Blood Pressure 145/76 01/22/23 10:32 Pulse Oximetry 100 01/22/23 10:32 Oxygen Delivery Me thod Room Air 01/22/23 10:32 MDM - Abdominal Pain Medical Decision Making 37-year-old gentleman presenting with abdominal symptoms. Tenderness on exam with no evidence of acute surgical abdomen. Nontoxic. No significant hematologic or metabolic abnormalities to explain symptoms. No UTI CT with enhancing gastric mucosal lesion. Discussed with surgery on-call and patient appropriate for outpatient referral. Treated with antiemetic, GI cocktail, Protonix and improved. The results of ED evaluation were discussed with the patient including prescriptions and/or symptomatic cares (if applicable) including appropriate and responsible use, followup plan, and return precautions. The patient verbalized understanding and felt safe for discharge. Medical Records I reviewed the patient's medical records. Lab Data I reviewed the patient's lab results. 01/22/23 10:35 01/22/23 10:35 Labs/Radiology: Radiology Impressions Abdomen/Pelvis CT 01/22/23 11:25 IMPRESSION: 1. Prior cholecystectomy. 2. Enhancing gastric mucosal lesion suspected. Correlation with upper endoscopy or follow-up recommended. Laboratory Results WBC 6.8 10^3/uL (4.0-10.0) 01/22/23 10:35 RBC 5.17 10^6/uL (4.1-5.3) 01/22/23 10:35 Hgb 15.5 g/dL (11.7-16.6) 01/22/23 10:35 Hct 46.4 % (42.0-52.0) 01/22/23 10:35 MCV 89.7 fl (80-94) 01/22/23 10:35 MCH 30.0 pg (28.0-34.0) 01/22/23 10:35 MCHC 33.4 g/dL (30.0-36.0) 01/22/23 10:35 RDW 12.0 % (12.1-15.1) L 01/22/23 10:35 Plt Count 243 10^3/cmm (130-400) 01/22/23 10:35 MPV 10.4 fL (7.4-10.4) 01/22/23 10:35 Neut % (Auto) 70.4 % 01/22/23 10:35 Lymph % (Auto) 17.4 % 01/22/23 10:35 [place] % (Auto) 7.2 % 01/22/23 10:35 Eos % (Auto) 4.0 % 01/22/23 10:35 Baso % (Auto) 0.9 % 01/22/23 10:35 Neut # (Auto) 4.80 10^3/uL (1.8-7.7) 01/22/23 10:35 Lymph # (Auto) 1.2 10^3/uL (0.8-4.8) 01/22/23 10:35 [place] # (Auto) 0.5 10^3/uL (0.2-0.9) 01/22/23 10:35 Eos # (Auto) 0.3 10^3/uL (0.0-0.8) 01/22/23 10:35 Baso # (Auto) 0.1 10^3/uL (0.0-0.1) 01/22/23 10:35 Nucleated RBC % (auto) 0 % 01/22/23 10:35 Nucleated RBCs # 0.0 /100WBC 01/22/23 10:35 Sodium 136 mmol/L (136-145) 01/22/23 10:35 Potassium 4.5 mmol/L (3.5-5.1) 01/22/23 10:35 Chloride 105 mmol/L (98-107) 01/22/23 10:35 Carbon Dioxide 20 mmol/L (22-29) L 01/22/23 10:35 Anion Gap 15.5 (5-19) 01/22/23 10:35 BUN 8 mg/dL (6-20) 01/22/23 10:35 Creatinine 0.8 mg/dL (0.7-1.2) 01/22/23 10:35 GFR Calculation 110.0 mL/min (90-130) 01/22/23 10:35 Glucose 101 mg/dL (65-115) 01/22/23 10:35 Calculated Osmolality 280 mOsm/kg (285-295) L 01/22/23 10:35 Calcium 8.6 mg/dL (8.5-10.5) 01/22/23 10:35 Total Bilirubin 0.5 mg/dL (0.15-1.2) 01/22/23 10:35 AST 28 U/L (0-40) 01/22/23 10:35 ALT 27 U/L (0-41) 01/22/23 10:35 Alkaline Phosphatase 107 U/L (40-130) 01/22/23 10:35 Total Protein 6.5 g/dL (6.6-8.7) L 01/22/23 10:35 Albumin 4.2 g/dL (3.5-5.2) 01/22/23 10:35 Globulin 2.3 g/dL (1.3-4.6) 01/22/23 10:35 Lipase 19 U/L (13-60) 01/22/23 10:35 Urine Color Yellow (Yellow) 01/22/23 11:49 Urine Appearance Clear (CLEAR) 01/22/23 11:49 Urine pH 5 (5-7) 01/22/23 11:49 Ur Specific [place] 1.015 (1.005-1.030) 01/22/23 11:49 Urine Protein Neg (Negative) 01/22/23 11:49 Urine Glucose (UA) Norm (Normal) 01/22/23 11:49 Urine Ketones Negative (Negative) 01/22/23 11:49 Urine Blood Neg (Negative) 01/22/23 11:49 Urine Nitrate Negative (Negative) 01/22/23 11:49 Urine Bilirubin Neg (Negative) 01/22/23 11:49 Urine Urobilinogen Norm mg/dL (Negative) 01/22/23 11:49 Ur Leukocyte Esterase Negative (Negative) 01/22/23 11:49 Discharge Plan Discharge Patient Disposition: Home Clinical Impression: Abdominal pain, Peptic ulcer disease Condition: Stable Prescriptions: New Protonix 40 mg tablet,delayed release (DR/EC) 40 mg PO BID 14 Days Qty: 28 0RF Carafate 1 gram tablet 1 g PO TID Qty: 30 0RF ondansetron 4 mg tablet,disintegrating 4 mg PO Q8H PRN (Reason: nausea and vomiting) Qty: 15 0RF Discharge Orders: Discharge ED (Routine); Ordered 01/22/23 Ordered By: Jesse Benitez Discharge Diet: Advance as tolerated and Clear Liquid Discharge Activity: Increase activity as tolerated Patient Instructions: Peptic Ulcer (ED), Diet for Stomach Ulcers and Gastritis (ED), Abdominal Pain (ED), Opioid Safety Activity Restrictions/Additional Instructions: Thank you for visiting the emergency department. You were seen and evaluated for abdominal pain. The exact cause of your symptoms is unclear however may be related to ulcers or other gastritis. I will initiate you on pantoprazole and sucralfate as well as prescribe antinausea medication. Please avoid NSAIDs. I will message case management for follow-up with surgery for endoscopy. Return for uncontrolled symptoms, inability to tolerate oral intake, blood in vomit or stool, or anything else that you are concerned about and feel needs emergency department evaluation. 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
[2023-01-22 10:32] VITALS: BP 145/76; PULSE 70; RESP 16; TEMP 36.4; O2SAT 100
[2023-01-22 10:37] VITALS: BMI 31.4
[2023-01-22 10:43] LABS: Basophils # 0.1 10^3/uL (0.0-0.1); Basophils % 0.9 %; Eosinophils # 0.3 10^3/uL (0.0-0.8); Hematocrit 46.4 % (42.0-52.0); Hemoglobin 15.5 g/dL (11.7-16.6); Lymphocytes # 1.2 10^3/uL (0.8-4.8); Lymphocytes % 17.4 %; Mean Corpuscular HGB Conc 33.4 g/dL (30.0-36.0); Mean Corpuscular Volume 89.7 fl (80-94); Mean Platelet Volume 10.4 fL (7.4-10.4); Monocytes # 0.5 10^3/uL (0.2-0.9); Monocytes % 7.2 %; Neutrophils % 70.4 %; Nucleated Red Blood Cells % 0 %; Platelet Count 243 10^3/cmm (130-400); Red Blood Count 5.17 10^6/uL (4.1-5.3); White Blood Count 6.8 10^3/uL (4.0-10.0)
--- NOTE | 2023-01-22 10:52 | PC.PHAR ---
pt states he takes no rx or otc medications
[2023-01-22 11:17] LABS: Alanine Aminotransferase 27 U/L (0-41); Albumin Level 4.2 g/dL (3.5-5.2); Alkaline Phosphatase 107 U/L (40-130); Anion Gap 15.5 (5-19); Aspartate Amino Transferase 28 U/L (0-40); Blood Urea Nitrogen 8 mg/dL (6-20); Calcium 8.6 mg/dL (8.5-10.5); Carbon Dioxide 20 mmol/L (22-29); Chloride 105 mmol/L (98-107); Globulin 2.3 g/dL (1.3-4.6); Glucose 101 mg/dL (65-115); Lipase 19 U/L (13-60); Osmolality Calculated 280 mOsm/kg (285-295); Potassium 4.5 mmol/L (3.5-5.1); Sodium 136 mmol/L (136-145); Total Bilirubin 0.5 mg/dL (0.15-1.2); Total Protein 6.5 g/dL (6.6-8.7)
--- NOTE | 2023-01-22 11:25 | CTR_ITS ---
PROCEDURE INFORMATION: Exam: CT Abdomen And Pelvis With Contrast Exam date and time: 01/22/2023 11:28 AM Age: 37 years old Clinical indication: Abdominal pain; Generalized; Prior surgery; Surgery date: 6+ months; Surgery type: Gb; Additional info: Epigastric pain, n/v TECHNIQUE: Imaging protocol: Computed tomography of the abdomen and pelvis with contrast. Radiation optimization: All CT scans at this facility use at least one of these dose optimization techniques: automated exposure control; mA and/or kV adjustment per patient size (includes targeted exams where dose is matched to clinical indication); or iterative reconstruction. Contrast material: OMNI 350; Contrast volume: 100 ml; Contrast route: INTRAVENOUS (IV); REPORTING DATA: Count of CT and Cardiac NM exams in prior 12 months: This patient has received 0 known CTs and 0 known cardiac nuclear medicine studies in the 12 months prior to the current study. COMPARISON: CT abdomen pelvis w con* [id number] 01/01/2020 1:53 AM RADIATION DOSE METRICS: Total DLP (mGy-cm): 882.03 FINDINGS: Liver: Normal. No mass. Gallbladder and bile ducts: The gallbladder is surgically absent, with metallic clips in the gallbladder fossa. No extrahepatic biliary ductal dilatation or calculus. Pancreas: Normal. No ductal dilation. Spleen: Normal. No splenomegaly. Adrenal glands: Normal. No mass. Kidneys and ureters: Normal. No hydronephrosis. Stomach and bowel: Enhancing mucosal lesion suspected of the medial upper gastric body measuring approximately 13 x 10.9 x 9.2 mm (series 4, image 26; series 6, image 18; series 7, image 23). Increased fluid within mid to distal abdominal small bowel loops without pathologic dilatation, or abrupt caliber transition, a nonspecific finding. Appendix: The vermiform appendix is normal. Intraperitoneal space: No free air. No significant fluid collection. Vasculature: Calcified phleboliths are present in the lower pelvis bilaterally. Lymph nodes: No enlarged lymph nodes. Urinary bladder: Unremarkable as visualized. Reproductive: Unremarkable as visualized. Bones/joints: Unremarkable. No acute fracture. Soft tissues: A small right inguinal hernia is present containing only intra-abdominal fat. CT/CT abdomen pelvis w con* [id number] IMPRESSION: 1. Prior cholecystectomy. 2. Enhancing gastric mucosal lesion suspected. Correlation with upper endoscopy or follow-up recommended.
[2023-01-22] MEDS: iohexol 350 mg/mL 500 mL Btl (per mL) IV (11:43)
[2023-01-22] MEDS: pantoprazole 40 mg SDV IVP (11:53)
[2023-01-22] MEDS: ondansetron 2 mg/ML SDV 2 mL 4 MG IVP (11:53)
[2023-01-22] MEDS: aluminum-mag hydrox-simethicon 30 ML, sucralfate oral liq 1 GM PO (11:53)
[2023-01-22 11:55] LABS: Add Urine Microscopic? NO; Charge for UA Resulting for Rev
[2023-01-22 11:57] LABS: Bilirubin Urine Neg (Negative); Blood Urine Neg (Negative); Glucose Urine UA Norm (Normal); Ketones Urine Negative (Negative); Leukocyte Esterase Urine Negative (Negative); Nitrate Urine Negative (Negative); Protein Urine Neg (Negative); Specific Gravity, Urine 1.015 (1.005-1.030); Urine Appearance Clear (CLEAR); Urine Color Yellow (Yellow); Urobilinogen Urine Norm (Negative); pH Urine 5 (5-7)
--- NOTE | 2023-01-22 15:29 | DCPLANNER ---
Addendum entered by Carmen Valle 01/28/23 15:33: branch store manager received the following message from the general surgery clinic regarding follow up appointment: Due to no insurance and balance patient has been mailed an FA packet. Original Note: branch store manager had message to schedule a follow up appointment for patient with general surgery. branch store manager sent patients information to the front office staff at general surgery. Patients information will be printed and reviewed. Clinic will call patient with appointment information.
== END 2023-01-22 13:04 | disposition home or self-care (01) ==
PROVIDERS: Emergency Provider Emergency Medicine
DX: K27.9 Peptic ulcer, site unspecified, unspecified as acute or chronic, without hemorrhage or perforation (principal); R10.9 Unspecified abdominal pain
CPT/HCPCS: 36415; 74177; 80053; 81003; 83690; 85025; 96374; 96375; 99285; C9113; J2405; Q9967

== ENCOUNTER 2023-06-17 04:24 | Inpatient (IN) | payer MEDICAID, SELFPAY ==
[2023-06-17 04:27] VITALS: BP 106/82; PULSE 97; RESP 18; TEMP 36.8; O2SAT 97; BMI 31.6
--- NOTE | 2023-06-17 04:32 | ED.C_ITS ---
HPI - Psych General: Chief Complaint: Psychiatric Symptoms Stated Complaint: SI Time Seen by Provider: 06/17/23 04:26 Source: patient and police Mode of arrival: ambulatory Limitations: no limitations History of Present Illness: 37-year-old male is here with police sta rishi that he is suicidal. He states he is feeling he cannot get his life together and just wants to . He has a plan of shooting himself or drinking chemicals to kill himself. Associated symptoms: Reports depression and suicidal ideation Review of Systems Const: Denies: fever(s) or chills ENMT: Denies: throat pain or dental pain Card: Denies: chest pain Resp: Denies: dyspnea GI: Denies: abdominal pain, nausea, vomiting or diarrhea Musc: Denies: neck pain or back pain Skin/Breast: Denies: rash Neuro: Denies: headache(s) Psych: Reports: depression and suicidal ideation [facility] ED PFSH: Medical History Psychiatric care Presence of pancreatic duct stent Pancreatitis, recurrent Surgical History S/P cholecystectomy Social History Current gender identity: Male Physical Exam Const: COMMON NORMALS: no acute distress, patient oriented x3 and healthy appearing HENMT: COMMON NORMALS: normocephalic and atraumatic HEAD & SCALP: normocephalic and atraumatic Neck/C-Spine: COMMON NORMALS: full ROM and supple Chest: COMMONS NORMALS: normal inspection of the chest Resp: COMMON NORMALS: normal respiratory effort Cardio: COMMON NORMALS: regular rate, regular rhythm and No murmurs present (Cardio) RATE: regular rate RHYTHM: regular rhythm Extremity: COMMON NORMALS: normal to inspection and full ROM Neuro: COMMON NORMALS: patient oriented x3, moves all extremities and no focal motor deficits Psych: COMMON NORMALS: mental status grossly normal, Normal thought process present and cooperative THOUGHT PROCESS: Normal thought process present THOUGHT CONTENT: Yes Suicidality present Skin: COMMON NORMALS: no rashes or lesions noted and no wounds GENERAL SKIN EXAM: no rashes or lesions noted Course Vital Signs: Vital signs: Vital Signs Temperature 98.3 F 06/17/23 04:27 Pulse Rate 97 06/17/23 04:27 Respiratory Rate 18 06/17/23 04:27 Blood Pressure 106/82 06/17/23 04:27 Pulse Oximetry 97 06/17/23 04:27 Oxygen Delivery Me thod Room Air 06/17/23 04:27 MDM - Psych Medical Decision Making Patient presents here with suicidal ideation with a plan of drinking chemicals or shooting himself patient is medically cleared I spoke to Dr. Coats and will admit. Medical Records I reviewed the patient's medical records. Lab Data I reviewed the patient's lab results. All radiology interpretation(s) finalized by discharge Discharge Plan Discharge Patient Disposition: Admitted As Inpatient Clinical Impression: Suicidal ideation Coding Level of Care Code ED [employer] for [employer]i Sanchez
--- NOTE | 2023-06-17 05:29 | PC.NURSE ---
Pt served with Copy of [facility] by this RN and security. All questions answered.
[2023-06-17 05:41] LABS: Basophils # 0.1 10^3/uL (0.0-0.1); Basophils % 0.5 %; Eosinophils # 0.1 10^3/uL (0.0-0.8); Eosinophils % 1.3 %; Hematocrit 44.8 % (37-53); Lymphocytes # 1.8 10^3/uL (0.8-4.8); Lymphocytes % 17.3 %; Mean Corpuscular HGB Conc 33.7 g/dL (30-55); Mean Corpuscular Volume 88.9 fl (82-101); Mean Platelet Volume 10.3 fL (7.4-10.4); Monocytes # 0.8 10^3/uL (0.2-0.9); Monocytes % 7.9 %; Neutrophils # 7.38 10^3/uL (1.8-7.7); Neutrophils % 72.7 %; Nucleated Red Blood Cells % 0 %; Platelet Count 263 10^3/cmm (157-399); Red Blood Count 5.04 10^6/uL (3.85-5.65); Red Cell Distribution Width 11.9 % (12.1-15.1); White Blood Count 10.14 10^3/uL (3.29-11.43)
[2023-06-17 05:59] LABS: Alanine Aminotransferase 44 U/L (0-41); Albumin Level 4.7 g/dL (3.5-5.2); Alkaline Phosphatase 90 U/L (40-130); Anion Gap 18.9 (5-19); Aspartate Amino Transferase 69 U/L (0-40); Blood Urea Nitrogen 24 mg/dL (6-20); Calcium 9.5 mg/dL (8.5-10.5); Carbon Dioxide 21 mmol/L (22-29); Chloride 101 mmol/L (98-107); Globulin 2.8 g/dL (1.3-4.6); Glomerular Filtration Rate 68.9 mL/min (90-130); Glucose 92 mg/dL (65-115); Osmolality Calculated 288 mOsm/kg (285-295); Potassium 3.9 mmol/L (3.5-5.1); Sodium 137 mmol/L (136-145); Total Bilirubin 1.4 mg/dL (0.15-1.2); Total Protein 7.5 g/dL (6.6-8.7)
[2023-06-17 06:00] VITALS: BP 136/78; PULSE 76; RESP 18; TEMP 36.5; O2SAT 98
[2023-06-17 06:00] LABS: Acetaminophen < 5.0 ug/mL (10-30); Alcohol Level < 10 mg/dL (0-10); Salicylate < 0.3 mg/dL (3-10)
[2023-06-17 06:11] LABS: Amphetamines Screen Urine Positive (Negative); Barbiturates Screen Urine Negative (Negative); Benzodiazepines Screen Urine Negative (Negative); Cocaine Screen Urine Negative (Negative); Opiate Screen Urine Negative (Negative); PCP Screen Urine Negative (Negative); THC Screen Urine Positive (Negative)
--- NOTE | 2023-06-17 07:11 | PC.ADMIT ---
[facility] Admission Note: The patient,Gagandeep Gonzalez,37 y/o, was given written information regarding hospital policies, unit procedures and contact persons. Patient's smoking status: .1*2 PACKS A DAY Vital Signs - 8 hr 06/17/23 04:27 06/17/23 06:00 06/17/23 06:00 Temperature 98.3 F 97.7 F Pulse Rate 97 76 Respiratory Rate 18 18 Blood Pressure 106/82 136/78 Pulse Oximetry 97 98 ADMITTED FROM [facility] ER VIA WHEELCHAIR AND SECURITY. PT ON 96 HOUR HOLD THAT ENDS ON 06/23/23 AT 0426 AM. PT STATES HE IS HERE DUE TO HIS LEAVING AND NOW HE IS USING AND IS SUICIDAL. PT IS POSITIVE FOR THC AND AMPHETAMINES. PT REPORTS BEING HERE IN THE NPU TWICE AND HAVING AN OVERDOSE IN 2014 FROM OVERDOSE. PT REPORTS HE HAS HAD DRUG TREATMENT IN 2011 AT [facility] BUT IT WAS NOT SUCCESSFUL AND HE DID NOT STAY CLEAN. PT HAS NKDA AND TAKES NO HOME MEDICATIONS. PT GIVEN SNACK AND DRINK. ORIENTATED TO UNIT. ALL QUESTIONS ANSWERED AND SUPPORT WAS VOICED. DENIES PAIN. DENIES SI/HI AND AVH AT THIS TIME. PT STATES HE JUST WANTS TO GIVE UP. SUPPORT VOICED. Oxygen Delivery Method Room Air Room Air Room Air
[2023-06-17 14:00] VITALS: BP 130/88; PULSE 77; RESP 20; TEMP 36.7; O2SAT 97
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
[2023-06-17 19:59] VITALS: BP 132/72; PULSE 72; RESP 20; O2SAT 97
[2023-06-17] MEDS: haloperidol 5 mg Tablet PO (20:06)
[2023-06-17] MEDS: trazodone 50 mg Tablet PO (21:20)
[2023-06-18 06:00] VITALS: RESP 18
--- NOTE | 2023-06-18 09:00 | PC.NURSE ---
IN BED RESTING. AROUSES TO VOICE. DENIES SI/HI AND AVH AT THIS TME. RATES ANXIETY 2/10 AND DEPRESSION 2/10. DENIES PAIN. PTS FLAME BRAZING MACHINE OPERATOR CALLED AND PT SPOKE TO HER. ALL QUESTIONS ANSWERED AND SUPPORT VOICED.
[2023-06-18 14:00] VITALS: BP 157/87; PULSE 91; RESP 20; TEMP 36.6; O2SAT 96
--- NOTE | 2023-06-18 17:48 | P.NPUPN_ITS ---
Subjective NPU 2 Subjective: Patient presented today reporting that he is feeling okay. He reports that the Haldol really knocked him out and made him sleep for a long time today. We discussed that most people adjust to that but that we could consider decreasing the dose if he continues to be that tired after his dose. We discussed his ongoing anxiety and discussed the risks, benefits and alternatives of a trial of BuSpar and he understood and agreed to proceed as is documented in this note. Mental Status Exam 2 MSE Comments: This is a tall overweight, well-developed white male in hospital scrubs with limited grooming and eye contact. No abnormal movements except for mild psychomotor agitation and less pronounced movements consistent with tweaking. Cooperative with exam in mild distress. Speech was mostly normal rate and volume. Mood described as a little better but tired, affect congruent. Thought process organized. Thought content: Patient denied suicidal or homicidal ideation, there were no delusions reported but likely paranoia noted, he denied auditory or visual hallucinations. Attention and concentration appeared limited and memory was somewhat reliable but none were formally tested. He is alert and oriented x 3. Insight and judgment and impulse control are impaired. Vitals/I&O/Wt Last Vital Signs Temp 97.8 F 06/18/23 14:00 Pulse 91 06/18/23 14:00 Resp 20 H 06/18/23 14:00 BP 157/87 06/18/23 14:00 Pulse Ox 96 06/18/23 14:00 O2 Del Method Room Air 06/17/23 19:59 Weight last 48 hrs Weight 121.109 kg Data NPU 06/17/23 05:36 06/17/23 05:36 A&P Assessment and plan (1) Suicidal ideation: (2) Methamphetamine use disorder, severe: (3) Psychosis: (4) Depression: Plan This is a 37-year-old white male with a long history of addiction and psychosocial challenges who presents with active addiction and psychosis open to initiation of medications. 1. Continue current medication. Initiated Haldol 5 mg p.o. nightly. 2. Continue every 15 minute checks for safety. 3. Encourage individual, group and milieu therapy. 4. Encourage sober living treatment after discharge at the highest level of care to which he is willing to commit. Involuntary Hold Information 2 96 Hour Hold: 96 Hour Involuntary Admission: Yes 96 Hour Hold Ending Date: 06/23/23 96 Hour Hold Ending Time: 04:26 Attestations NPU 2 Medical Necessity Statement*: Inpatient psychiatric evaluation is medically necessary and the clinically appropriate intervention at this time. We will monitor/initiate medications and make changes as indicated. Likely length of stay 2-4 days. Coding Level of Care Code Acute Code for [facility] Fwd Diagnoses Suicidal ideation R45.851 Methamphetamine use disorder, severe F15.20 Psychosis F29 Depression F32.A
[2023-06-18] MEDS: nicotine 2 mg Gum BUCCAL (18:27)
[2023-06-18] MEDS: haloperidol 5 mg Tablet PO (20:11)
[2023-06-18] MEDS: trazodone 50 mg Tablet PO (20:11)
[2023-06-18 20:27] VITALS: BP 133/80; PULSE 64; RESP 17; TEMP 36.4; O2SAT 97
[2023-06-19] MEDS: BuSPIRONE 10 mg Tablet PO ×2 (10:09→18:22)
--- NOTE | 2023-06-19 10:53 | P.NPUPN_ITS ---
Subjective NPU 2 Subjective: Patient presented today reporting that he is doing okay. His mother visited and was supportive of the idea of him coming home but we also discussed she has an unfortunate history of not necessarily challenging him to work on these things that he needs to work on. She is being supportive but right now he needs accountability. We have a bed date at [facility] of no later than 06/24/2023 and they may have an earlier date and we discussed the benefit of going directly to [facility] given his history. He denied any side effects to the medication. Staff report he seems to be adjusting to the Haldol with less lethargy. Mental Status Exam 2 MSE Comments: This is a tall overweight, well-developed white male in hospital scrubs with limited grooming and eye contact. No abnormal movements. Cooperative with exam in mild distress. Speech was mostly normal rate and volume. Mood described as a little better, affect congruent. Thought process organized. Thought content: Patient denied suicidal or homicidal ideation, there were no delusions reported and less paranoia noted, he denied auditory or visual hallucinations. Attention and concentration appeared limited and memory was somewhat reliable but none were formally tested. He is alert and oriented x 3. Insight and judgment are limited and impulse control is impaired. Vitals/I&O/Wt Last Vital Signs Temp 97.6 F 06/18/23 20:27 Pulse 64 06/18/23 20:27 Resp 17 06/18/23 20:27 BP 133/80 06/18/23 20:27 Pulse Ox 97 06/18/23 20:27 O2 Del Method Room Air 06/18/23 20:27 Data NPU 06/17/23 05:36 06/17/23 05:36 A&P Assessment and plan (1) Suicidal ideation: (2) Methamphetamine use disorder, severe: (3) Psychosis: (4) Depression: Plan This is a 37-year-old white male with a long history of addiction and psychosocial challenges who presents with active addiction and psychosis open to initiation of medications. 1. Continue current medication. Initiated Haldol 5 mg p.o. nightly. Started BuSpar 10 mg p.o. twice daily. 2. Continue every 15 minute checks for safety. 3. Encourage individual, group and milieu therapy. 4. Encourage sober living treatment after discharge at the highest level of care to which he is willing to commit. Involuntary Hold Information 2 96 Hour Hold: 96 Hour Involuntary Admission: Yes 96 Hour Hold Ending Date: 06/23/23 96 Hour Hold Ending Time: 04:26 Attestations NPU 2 Medical Necessity Statement*: Inpatient psychiatric evaluation is medically necessary and the clinically appropriate intervention at this time. We will monitor/initiate medications and make changes as indicated. Likely length of stay 2-4 days. Coding Level of Care Code Acute Code for g Fwd Diagnoses Suicidal ideation R45.851 Methamphetamine use disorder, severe F15.20 Psychosis F29 Depression F32.A
[2023-06-19 14:00] VITALS: BP 148/74; PULSE 98; RESP 16; TEMP 37; O2SAT 95
[2023-06-19] MEDS: haloperidol 5 mg Tablet PO (20:11)
[2023-06-19] MEDS: trazodone 50 mg Tablet PO (20:11)
[2023-06-19 20:27] VITALS: BP 161/101; PULSE 74; RESP 18; O2SAT 96
[2023-06-20 06:00] VITALS: BP 147/74; PULSE 70; RESP 18; TEMP 36.8; O2SAT 96
--- NOTE | 2023-06-20 07:11 | P.NPUPN_ITS ---
Subjective NPU 2 Subjective: Patient presented today reporting that he is doing okay. We discussed that we would not be extending his 96-hour hold which ends on 06/23/2023 technically, but 06/22/2023 functionally. We discussed our preference that he stayed until 06/24/2023 which is when his bed date is at [facility] to go directly to [facility] but he is reporting a need to gather my stuff. We continue to share with him the decrease in making it to a bed date when people do not go directly from the hospital to the rehab. Mental Status Exam 2 MSE Comments: This is a tall overweight, well-developed white male in hospital scrubs with limited grooming and eye contact. No abnormal movements. Cooperative with exam in mild distress. Speech was mostly normal rate and volume. Mood described as a little better, affect congruent. Thought process organized. Thought content: Patient denied suicidal or homicidal ideation, there were no delusions reported and less paranoia noted, he denied auditory or visual hallucinations. Attention and concentration appeared limited and memory was somewhat reliable but none were formally tested. He is alert and oriented x 3. Insight and judgment are limited and impulse control is impaired. Vitals/I&O/Wt Last Vital Signs Temp 98.2 F 06/20/23 06:00 Pulse 70 06/20/23 06:00 Resp 18 06/20/23 06:00 BP 147/74 06/20/23 06:00 Pulse Ox 96 06/20/23 06:00 O2 Del Method Room Air 06/20/23 06:00 Data NPU 06/17/23 05:36 06/17/23 05:36 A&P Assessment and plan (1) Suicidal ideation: (2) Methamphetamine use disorder, severe: (3) Psychosis: (4) Depression: Plan This is a 37-year-old white male with a long history of addiction and psychosocial challenges who presents with active addiction and psychosis open to initiation of medications. 1. Continue current medication. Initiated Haldol 5 mg p.o. nightly. Started BuSpar 10 mg p.o. twice daily. 2. Continue every 15 minute checks for safety. 3. Encourage individual, group and milieu therapy. 4. Encourage sober living treatment after discharge at the highest level of care to which he is willing to commit. Plan for discharge on Friday to mother with 96-hour hold ending. Bed date at [facility] 06/24/2023. Involuntary Hold Information 2 96 Hour Hold: 96 Hour Involuntary Admission: Yes 96 Hour Hold Ending Date: 06/23/23 96 Hour Hold Ending Time: 04:26 Attestations NPU 2 Medical Necessity Statement*: Inpatient psychiatric evaluation is medically necessary and the clinically appropriate intervention at this time. We will monitor/initiate medications and make changes as indicated. Likely length of stay 2 days. Coding Level of Care Code Acute Code for g Fwd Diagnoses Suicidal ideation R45.851 Methamphetamine use disorder, severe F15.20 Psychosis F29 Depression F32.A
[2023-06-20] MEDS: BuSPIRONE 10 mg Tablet PO ×2 (10:02→17:37)
[2023-06-20 14:00] VITALS: BP 134/77; PULSE 70; RESP 14; TEMP 36.4; O2SAT 96
[2023-06-20 20:13] VITALS: BP 158/94; PULSE 79; RESP 16; TEMP 36.6; O2SAT 95
[2023-06-20] MEDS: trazodone 50 mg Tablet PO (20:31)
[2023-06-20] MEDS: haloperidol 5 mg Tablet PO (20:31)
[2023-06-21 06:00] VITALS: BP 126/77; PULSE 61; RESP 15; O2SAT 95
--- NOTE | 2023-06-21 07:03 | P.NPUPN_ITS ---
Subjective NPU 2 Subjective: Patient presented today reporting that he is doing okay. He talked about going to rehab 1 other time but acknowledging that it is necessary at this time for things to be improved. He endorses that to get into the drug court you have to go to rehab first and completed so that they know that you are committed. So he knows he has to do this. That is why he was saying he would be fine to be discharged. We continue to discuss however that the smaller time window gives him less time to make an error that would be costly. He denied any side effects to the medications we discussed discharge in the morning. Mental Status Exam 2 MSE Comments: This is a tall overweight, well-developed white male in hospital scrubs with limited grooming and eye contact. No abnormal movements. Cooperative with exam in no acute distress. Speech was mostly normal rate and volume. Mood described as better, affect congruent. Thought process organized. Thought content: Patient denied suicidal or homicidal ideation, there were no delusions reported and less paranoia noted, he denied auditory or visual hallucinations. Attention and concentration appeared limited and memory was somewhat reliable but none were formally tested. He is alert and oriented x 3. Insight and judgment are limited and impulse control is impaired, but improving. Vitals/I&O/Wt Last Vital Signs Temp 97.9 F 06/20/23 20:13 Pulse 61 06/21/23 06:00 Resp 15 06/21/23 06:00 BP 126/77 06/21/23 06:00 Pulse Ox 95 06/21/23 06:00 O2 Del Method Room Air 06/21/23 06:00 Data NPU 06/17/23 05:36 06/17/23 05:36 A&P Assessment and plan (1) Suicidal ideation: (2) Methamphetamine use disorder, severe: (3) Psychosis: (4) Depression: Plan This is a 37-year-old white male with a long history of addiction and psychosocial challenges who presents with active addiction and psychosis open to initiation of medications. 1. Continue current medication. Initiated Haldol 5 mg p.o. nightly. Started BuSpar 10 mg p.o. twice daily. 2. Continue every 15 minute checks for safety. 3. Encourage individual, group and milieu therapy. 4. Encourage sober living treatment after discharge at the highest level of care to which he is willing to commit. Plan for discharge tomorrow morning to mother with 96-hour hold ending Friday at 0001. Bed date at [facility] 06/24/2023. Involuntary Hold Information 2 96 Hour Hold: 96 Hour Involuntary Admission: Yes 96 Hour Hold Ending Date: 06/23/23 96 Hour Hold Ending Time: 04:26 Attestations NPU 2 Medical Necessity Statement*: Inpatient psychiatric evaluation is medically necessary and the clinically appropriate intervention at this time. We will monitor/initiate medications and make changes as indicated. Likely length of stay 1 day. Coding Level of Care Code Acute Code for [facility] Fwd Diagnoses Suicidal ideation R45.851 Methamphetamine use disorder, severe F15.20 Psychosis F29 Depression F32.A
[2023-06-21] MEDS: BuSPIRONE 10 mg Tablet PO ×2 (08:44→18:24)
[2023-06-21 14:00] VITALS: BP 162/95; PULSE 67; RESP 16; TEMP 36.6; O2SAT 96
[2023-06-21 19:47] VITALS: BP 148/84; PULSE 76; RESP 16; TEMP 36.8; O2SAT 98
[2023-06-21] MEDS: trazodone 50 mg Tablet PO (20:02)
[2023-06-21] MEDS: haloperidol 5 mg Tablet PO (20:03)
[2023-06-22 06:00] VITALS: BP 157/93; PULSE 78; RESP 17; TEMP 36.8; O2SAT 95; BMI 30.9
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
[2023-06-22 06:42] VITALS: BP 157/93; PULSE 78; RESP 17; TEMP 36.8; O2SAT 95
[2023-06-22] MEDS: BuSPIRONE 10 mg Tablet PO (09:15)
== END 2023-06-22 09:46 | disposition home or self-care (01) | DRG 897 ==
LOC: ER 04:40 → NP 05:25
PROVIDERS: Admitting Provider Psychiatry & Neurology Psychiatry; Emergency Provider Emergency Medicine; Visit Provider Psychiatry & Neurology Psychiatry
DX: F15.259 Other stimulant dependence with stimulant-induced psychotic disorder, unspecified (principal); R45.851 Suicidal ideations; F32.A Depression, unspecified; F17.210 Nicotine dependence, cigarettes, uncomplicated; F12.90 Cannabis use, unspecified, uncomplicated
CPT/HCPCS: 80053; 80306; 80307; 85025; 97150; 97165; 99285

== ENCOUNTER → 2023-07-09 09:47 | Outpatient (BNVA) | payer MEDICAID, SELFPAY | PROVIDERS: Visit Provider Nurse Practitioner Family | DX: R05.9 Cough, unspecified (principal); J10.1 Influenza due to other identified influenza virus with other respiratory manifestations | CPT/HCPCS: 87400 ==

== ENCOUNTER 2023-09-07 18:28 | Inpatient (IN) | payer BC, SELFPAY ==
[2023-09-07] VITALS (11 sets, daily range): BP systolic 133–171; BP diastolic 78–117; PULSE 59–82; RESP 15–22; TEMP 36.8; O2SAT 94–97; BMI 38.0
--- NOTE | 2023-09-07 18:49 | ECG_ITS ---
[facility] Test Date: 2023-09-07 Pat Name: Gaganedep Gonzalez Department: Room: Gender: Male [employer]: : 1985 Requested By: Linwood Santiago Order Number: [id number] Nadira MD: Abel Rowley M.D. Measurements Intervals Booker Rate: 68 P: 73 [place]: 207 QRS: 52 QRSD: 93 T: 50 QT: 397 QTc: 422 Interpretive Statements SINUS RHYTHM Compared to ECG 07/05/2017 15:22:50 No significant changes Electronically Signed On 09-07-2023 23:51:28 CDT by Abel Rowley M.D. [email or web address] ([employer])[facility] centralCellTech [facility]alslim[email or web address]/store/[id number] f
--- NOTE | 2023-09-07 18:49 | ED.C_ITS ---
HPI - Psych 2 General: Chief Complaint: ER Hold Stated Complaint: OVERDOSE Time Seen by Provider: 09/07/23 18:31 History of Present Illness: 38-year-old male who reports taking 20 m irtazapine, and 20 hydroxyzine at around 6 PM this evening. Supposedly, he did this for attention as he was having a difficult time with his significant other. He denies suicidality at this point. He was last admitted for psychiatric reasons in June, at this facility. The medications were prescribed to him. He denies other coingestions. He is asymptomatic essentially at this point. Review of Systems 2 Const: Denies: fever(s) Card: Denies: chest pain Resp: Denies: dyspnea GI: Denies: abdominal pain, nausea or vomiting : Denies: flank pain Skin/Breast: Denies: rash Neuro: Denies: headache(s) PFSH ED 2 PFSH: Medical History Psychiatric care Presence of pancreatic duct stent Pancreatitis, recurrent Surgical History S/P cholecystectomy Social History Current gender identity: Male Physical Exam 2 Const: COMMON NORMALS: no acute distress GENERAL APPEARANCE: cooperative; not ill appearing and not frail appearing HENMT: COMMON NORMALS: normocephalic, atraumatic and Normal external nose present HEAD & SCALP: normocephalic and atraumatic FACE & SINUS: normal facial exam and face symmetric NOSE: Normal external nose present Eye: COMMON NORMALS: Equal, round and reactive pupils present and EOMs intact bilaterally PUPIL: Yes Equal, round and reactive pupils present Neck/C-Spine: GENERAL: Yes trachea midline Chest: CHEST: Yes Symmetrical chest wall rise Resp: COMMON NORMALS: normal respiratory effort, No retractions, No use of accessory muscles and clear to auscultation bilaterally AUSCULTATION: clear to auscultation bilaterally Cardio: COMMON NORMALS: regular rate and regular rhythm RATE: regular rate RHYTHM: regular rhythm GI: COMMON NORMALS: Normal to inspection, nondistended, normoactive bowel sounds present Extremity: COMMON NORMALS: no pedal edema Neuro: ETHAN COMA SCALE: document GCS findings [place] coma scale eye opening: Spontaneous Ethan coma scale verbal response: Orientated Ethan coma scale motor response: Obey commands Ethan coma scale total score: 15 S ENSORY EXAM: Yes extremities (intact) Psych: COMMON NORMALS: speech normal SPEECH: Yes normal speech Skin: COMMON NORMALS: no rashes or lesions noted GENERAL SKIN EXAM: no rashes or lesions noted Course 2 Vital Signs: Vital signs: Vital Signs Temperature 98.2 F 09/07/23 18:35 Pulse Rate 61 09/07/23 22:30 Respiratory Rate 19 H 09/07/23 22:30 Blood Pressure 162/117 09/07/23 22:30 Pulse Oximetry 97 09/07/23 22:30 Oxygen Delivery Me thod Room Air 09/07/23 22:00 MDM - Psych Medical Decision Making 38-year-old male with intentional overdose on depression and anxiety medication. He does not show signs of significant toxicity at this point, but the half- lives of mirtazapine and hydroxyzine both are over 20 hours. He will be admitted to ICU. 96-hour paperwork has been filled out. He will require monitoring overnight before psychiatric evaluation tomorrow. Lab Data 09/07/23 18:35 09/07/23 18:35 Laboratory Results WBC 9.98 10^3/uL (3.29-11.43) 09/07/23 18:35 RBC 5.50 10^6/uL (3.85-5.65) 09/07/23 18:35 Hgb 16.60 g/dL (11.27-16.99) 09/07/23 18:35 Hct 49.4 % (37-53) 09/07/23 18:35 MCV 89.8 fl (82-101) 09/07/23 18:35 MCH 30.2 pg (27-33) 09/07/23 18:35 MCHC 33.6 g/dL (30-55) 09/07/23 18:35 RDW 11.9 % (12.1-15.1) L 09/07/23 18:35 Plt Count 213 10^3/cmm (157-399) 09/07/23 18:35 MPV 10.7 fL (7.4-10.4) H 09/07/23 18:35 Neut % (Auto) 78.1 % 09/07/23 18:35 Lymph % (Auto) 14.7 % 09/07/23 18:35 [place] % (Auto) 4.9 % 09/07/23 18:35 Eos % (Auto) 1.6 % 09/07/23 18:35 Baso % (Auto) 0.4 % 09/07/23 18:35 Neut # (Auto) 7.79 10^3/uL (1.8-7.7) H 09/07/23 18:35 Lymph # (Auto) 1.5 10^3/uL (0.8-4.8) 09/07/23 18:35 [place] # (Auto) 0.5 10^3/uL (0.2-0.9) 09/07/23 18:35 Eos # (Auto) 0.2 10^3/uL (0.0-0.8) 09/07/23 18:35 Baso # (Auto) 0.0 10^3/uL (0.0-0.1) 09/07/23 18:35 Nucleated RBC % (auto) 0 % 09/07/23 18:35 Nucleated RBCs # 0.0 /100WBC 09/07/23 18:35 Sodium 142 mmol/L (136-145) 09/07/23 18:35 Potassium 4.4 mmol/L (3.5-5.1) 09/07/23 18:35 Chloride 104 mmol/L (98-107) 09/07/23 18:35 Carbon Dioxide 26 mmol/L (22-29) 09/07/23 18:35 Anion Gap 16.4 (5-19) 09/07/23 18:35 BUN 16 mg/dL (6-20) 09/07/23 18:35 Creatinine 0.9 mg/dL (0.7-1.2) 09/07/23 18:35 GFR Calculation 95.5 mL/min (90-130) 09/07/23 18:35 Glucose 123 mg/dL (65-115) H 09/07/23 18:35 Calculated Osmolality 297 mOsm/kg (285-295) H 09/07/23 18:35 Calcium 9.4 mg/dL (8.5-10.5) 09/07/23 18:35 Total Bilirubin 0.5 mg/dL (0.15-1.2) 09/07/23 18:35 AST 22 U/L (0-40) 09/07/23 18:35 ALT 18 U/L (0-41) 09/07/23 18:35 Alkaline Phosphatase 90 U/L (40-130) 09/07/23 18:35 Total Protein 7.0 g/dL (6.6-8.7) 09/07/23 18:35 Albumin 4.6 g/dL (3.5-5.2) 09/07/23 18:35 Globulin 2.4 g/dL (1.3-4.6) 09/07/23 18:35 Vitamin B12 499 pg/mL (232-1245) 09/07/23 18:35 TSH 1.06 uIU/mL (0.27-4.20) 09/07/23 18:35 TSH 1.09 uIU/mL (0.27-4.20) 09/07/23 18:35 Urine Color Yellow (Yellow) 09/07/23 19:00 Urine Appearance Clear (CLEAR) 09/07/23 19:00 Urine pH 6 (5-7) 09/07/23 19:00 Ur Specific [place] 1.010 (1.005-1.030) 09/07/23 19:00 Urine Protein Neg (Negative) 09/07/23 19:00 Urine Glucose (UA) Norm (Normal) 09/07/23 19:00 Urine Ketones Negative (Negative) 09/07/23 19:00 Urine Blood Neg (Negative) 09/07/23 19:00 Urine Nitrate Negative (Negative) 09/07/23 19:00 Urine Bilirubin Neg (Negative) 09/07/23 19:00 Urine Urobilinogen Neg mg/dL (Negative) 09/07/23 19:00 Ur Leukocyte Esterase Negative (Negative) 09/07/23 19:00 Salicylates < 0.3 mg/dL (3-10) L 09/07/23 18:35 Urine Opiates Screen Negative ng/mL (Negative) 09/07/23 19:00 Acetaminophen < 5.0 ug/mL (10-30) L 09/07/23 18:35 Ur Barbiturates Screen Negative ng/mL (Negative) 09/07/23 19:00 Ur Phencyclidine Scrn Negative ng/mL (Negative) 09/07/23 19:00 Ur Amphetamines Screen Negative ng/mL (Negative) 09/07/23 19:00 U Benzodiazepines Scrn Negative ng/mL (Negative) 09/07/23 19:00 Urine Cocaine Screen Negative ng/mL (Negative) 09/07/23 19:00 U Marijuana (THC) Screen Negative ng/mL (Negative) 09/07/23 19:00 Ethyl Alcohol < 10 mg/dL (0-10) 09/07/23 18:35 No radiology studies performed this visit Discharge Plan Discharge Patient Disposition: Admitted As Inpatient Admit Provider: Chelsey Man Clinical Impression: Intentional overdose Condition: Fair Coding Level of Care Code ED Documentation Writer for Falguni Sanchez
[2023-09-07 18:54] LABS: Basophils % 0.4 %; Eosinophils # 0.2 10^3/uL (0.0-0.8); Eosinophils % 1.6 %; Hematocrit 49.4 % (37-53); Lymphocytes # 1.5 10^3/uL (0.8-4.8); Lymphocytes % 14.7 %; Mean Corpuscular HGB Conc 33.6 g/dL (30-55); Mean Corpuscular Hemoglobin 30.2 pg (27-33); Mean Corpuscular Volume 89.8 fl (82-101); Mean Platelet Volume 10.7 fL (7.4-10.4); Monocytes # 0.5 10^3/uL (0.2-0.9); Monocytes % 4.9 %; Neutrophils # 7.79 10^3/uL (1.8-7.7); Neutrophils % 78.1 %; Nucleated Red Blood Cells % 0 %; Platelet Count 213 10^3/cmm (157-399); Red Cell Distribution Width 11.9 % (12.1-15.1); White Blood Count 9.98 10^3/uL (3.29-11.43)
[2023-09-07] MEDS: charcoal (sorbitol) 25 gm/120 mL UDC PO (19:02)
[2023-09-07 19:03] LABS: Add Urine Microscopic? NO; Charge for UA Resulting for Rev
[2023-09-07 19:09] LABS: Bilirubin Urine Neg (Negative); Blood Urine Neg (Negative); Glucose Urine UA Norm (Normal); Ketones Urine Negative (Negative); Leukocyte Esterase Urine Negative (Negative); Nitrate Urine Negative (Negative); Protein Urine Neg (Negative); Urine Appearance Clear (CLEAR); Urine Color Yellow (Yellow); Urobilinogen Urine Neg (Negative); pH Urine 6 (5-7)
[2023-09-07 19:14] LABS: Amphetamines Screen Urine Negative (Negative); Barbiturates Screen Urine Negative (Negative); Benzodiazepines Screen Urine Negative (Negative); Cocaine Screen Urine Negative (Negative); Opiate Screen Urine Negative (Negative); PCP Screen Urine Negative (Negative); THC Screen Urine Negative (Negative)
[2023-09-07 19:15] LABS: Alanine Aminotransferase 18 U/L (0-41); Albumin Level 4.6 g/dL (3.5-5.2); Alkaline Phosphatase 90 U/L (40-130); Anion Gap 16.4 (5-19); Aspartate Amino Transferase 22 U/L (0-40); Blood Urea Nitrogen 16 mg/dL (6-20); Calcium 9.4 mg/dL (8.5-10.5); Carbon Dioxide 26 mmol/L (22-29); Chloride 104 mmol/L (98-107); Creatinine Clr Calc Pharmacy 156.2606; Globulin 2.4 g/dL (1.3-4.6); Glomerular Filtration Rate 95.5 mL/min (90-130); Glucose 123 mg/dL (65-115); Osmolality Calculated 297 mOsm/kg (285-295); Potassium 4.4 mmol/L (3.5-5.1); Sodium 142 mmol/L (136-145); Thyroid Stimulating Hormone 1.06 uIU/mL (0.27-4.20); Total Bilirubin 0.5 mg/dL (0.15-1.2)
[2023-09-07 19:19] LABS: Acetaminophen < 5.0 ug/mL (10-30); Alcohol Level < 10 mg/dL (0-10); Salicylate < 0.3 mg/dL (3-10)
--- NOTE | 2023-09-07 20:36 | P.HP_ITS ---
Providers/Chief Complaint 2 Chief Complaint: OVERDOSE History of Present Illness Gagandeep Gonzalez is a 38 year old male who presented to hospital after taking multiple tablets of mirtazapine and hydroxyzine, he took it around 6 PM, he is claiming he took about 60 tablets, he is denying suicidal attempt or ideation stating that he just needed to get attention of his . He is not complain of any chest pain or shortness of breath. He has been given charcoal in the ER. He is hemodynamically stable other than hypertension. Not requiring oxygen. No significant past medical history Smokes 1 pack/day, occasional alcohol use, denies recreational drug use Review of Systems 2 Const: Denies: fever(s) Eyes: Denies: change in vision ENMT: Denies: throat pain Card: Denies: chest pain Resp: Denies: dyspnea GI: Denies: abdominal pain : Denies: flank pain Musc: Denies: neck pain Skin/Breast: Denies: rash Medications/Allergies Allergies Allergy/AdvReac Type Severity Reaction Status Date / Time No Known Allergies Allergy Verified 09/07/23 18:43 PFSH Acute 2 PFSH: Medical History Psychiatric care Presence of pancreatic duct stent Pancreatitis, recurrent Surgical History S/P cholecystectomy Social History Current gender identity: Male Vitals/I&O/Wt Last Vital Signs Temp 98.2 F 09/07/23 18:35 Pulse 65 09/07/23 20:15 Resp 17 09/07/23 20:15 BP 166/97 09/07/23 20:15 Pulse Ox 95 09/07/23 20:15 O2 Del Method Room Air 09/07/23 20:15 Weight last 48 hrs Weight 127.006 kg Physical Exam 2 Narrative: Awake and alert GCS 15 Charcoal dunn on his lips Pleasant cooperative Nonfocal neuroexam Pupils are reactive Nonfocal neuroexam Hypertensive Currently on room air Hemodynamic stable Abdomen soft Data 09/07/23 18:35 09/07/23 18:35 A&P Assessment and plan (1) Depression: (2) Anxiety: (3) Intentional overdose: Plan Drug overdose Took mirtazapine and hydroxyzine Monitor QTc intervals Monitor in ICU No active nausea vomiting or signs of cardiac arrhythmia Patient is hypertensive No active chest pain or shortness of breath Doing well on room air Most likely will be able to go to neuropsychiatric unit by tomorrow Drug screen unremarkable Patient denying suicidal ideation stating that he dated to just seek attention I will give him antihypertensive regimen lisinopril 20 mg Full code GI soft diet DVT prophylaxis New diagnosis of hypertension I am adding lisinopril 20 mg for now he is stage III hypertensive, most likely will need at least 3 antihypertensive regimen which should be added gradually Attestations 2 Medical Necessity Statement*: Anticipating more than 2 midnights for management of drug overdose Diagnoses Depression F32.A Anxiety F41.9 Intentional overdose T50.902A
--- NOTE | 2023-09-07 21:00 | PC.NURSE ---
[facility] Pt served with copy of [facility] by this RN and security, pt A&Ox4. Pt states that he is familiar with [facility] and [facility] NPU. Pt had no further questions. Pt has ankle monitor on left ankle, pt reports that it needs to be charged q24 hr.
--- NOTE | 2023-09-07 21:45 | ECG_ITS ---
[facility] Test Date: 2023-09-07 Pat Name: Gagandeep Gonzalez Department: Room: EDIP Gender: Male Patient Accounts Specialist: : [id number] Requested By: Linwood Santiago Order Number: [id number] Nadira MD: Abel Rowley M.D. Measurements Intervals [place] Rate: 57 P: 66 AR: 214 QRS: 42 QRSD: 94 T: 48 QT: 459 QTc: 450 Interpretive Statements SINUS BRADYCARDIA WITH FIRST DEGREE AV BLOCK Compared to ECG 09/07/2023 18:49:03 First degree AV block now present Sinus rhythm no longer present Electronically Signed On 09-07-2023 23:51:10 CDT by Abel Rowley M.D. [id number]
--- NOTE | 2023-09-07 22:09 | PC.NURSE ---
pt mother phone call this nurse spoke with pt mother, latisha robison. pt wanted sign language teacher. this nurse told mother she wouldn't be able to see pt tonight, but wouldnt be able to see/ speak to pt during unit hours tomorrow.
[2023-09-07 22:53] LABS: Thyroid Stimulating Hormone 1.09 uIU/mL (0.27-4.20)
[2023-09-07] MEDS: sodium chloride 0.9% 1,000 ML 75 ML IV (23:03)
[2023-09-07] MEDS: lisinopril 20 mg Tablet PO (23:04)
[2023-09-07] MEDS: enoxaparin 40 mg/0.4 mL Syringe SUBCUT (23:05)
[2023-09-08] VITALS (17 sets, daily range): BP systolic 97–149; BP diastolic 45–91; PULSE 52–70; RESP 13–22; TEMP 36.3–36.6; O2SAT 92–97
--- NOTE | 2023-09-08 00:05 | PC.NURSE ---
poison control mirtazipine: peak 1-2 hours 1/2 life- 8 hours hydroxyzine: peak 1-3 hours sinus tach & drowsiness. prolonged qt. initial ekg. 2nd ekg @ 2145. last ekg @ 8 hr jhonatan labs @ 8 hr jhonatan for kidney and hepatic function Shandra EDWARDS
[2023-09-08 01:02] LABS: Vitamin B12 499 pg/mL (232-1245)
--- NOTE | 2023-09-08 03:16 | PC.NURSE ---
poison control called and asked that we do another EKG at 03:00 and repeat every 3 hours until medically cleared to go to NPU
--- NOTE | 2023-09-08 06:25 | PC.NURSE ---
Kelly from poison control called to follow up on pt medical status. I told her pt was released medically by the hospitalist and has a consult scheduled with the psychiatrist. Kelly stated she was closing his case.
[2023-09-08 06:55] LABS: Basophils % 0.6 %; Eosinophils # 0.4 10^3/uL (0.0-0.8); Eosinophils % 6.1 %; Hematocrit 46.7 % (37-53); Lymphocytes # 2.3 10^3/uL (0.8-4.8); Lymphocytes % 32.8 %; Mean Corpuscular HGB Conc 33.2 g/dL (30-55); Mean Corpuscular Hemoglobin 30.3 pg (27-33); Mean Corpuscular Volume 91.4 fl (82-101); Mean Platelet Volume 10.6 fL (7.4-10.4); Monocytes # 0.5 10^3/uL (0.2-0.9); Monocytes % 6.7 %; Neutrophils # 3.67 10^3/uL (1.8-7.7); Neutrophils % 53.7 %; Nucleated Red Blood Cells % 0 %; Platelet Count 189 10^3/cmm (157-399); Red Blood Count 5.11 10^6/uL (3.85-5.65); Red Cell Distribution Width 12.1 % (12.1-15.1); White Blood Count 6.85 10^3/uL (3.29-11.43)
--- NOTE | 2023-09-08 07:07 | PC.PHAR ---
PT STATES HE NO LONGER TAKES HALOPERIDOL 5 MG, TRAZODONE 50MG, OR BUSPIRONE 10 MG. LAST FILL 06/20/23 30 DAY SUPPLIES ON ALL. 09/08/23
[2023-09-08 07:16] LABS: Alanine Aminotransferase 15 U/L (0-41); Alkaline Phosphatase 74 U/L (40-130); Anion Gap 13.9 (5-19); Aspartate Amino Transferase 20 U/L (0-40); Blood Urea Nitrogen 12 mg/dL (6-20); Calcium 8.8 mg/dL (8.5-10.5); Carbon Dioxide 23 mmol/L (22-29); Chloride 110 mmol/L (98-107); Creatinine Clr Calc Pharmacy 140.6346; Globulin 2.2 g/dL (1.3-4.6); Glomerular Filtration Rate 84.5 mL/min (90-130); Glucose 106 mg/dL (65-115); Osmolality Calculated 296 mOsm/kg (285-295); Phosphorus 3.1 mg/dL (2.5-4.5); Potassium 3.9 mmol/L (3.5-5.1); Sodium 143 mmol/L (136-145); Total Bilirubin 0.6 mg/dL (0.15-1.2); Total Protein 6.2 g/dL (6.6-8.7)
--- NOTE | 2023-09-08 10:29 | PC.NURSE ---
ADMIT NOTE PT ARRIVED TO THE ER AFTER AN INTENTIONAL OVERDOSE OF MIRTAZAPINE AND HYDROXYZINE AN ESTIMATED 40- 60 TABLETS TOTAL. PT STATED IN THE EMERGENCY DEPARTMENT THAT HE DID THIS FOR ATTENTION WHEN HIM AND HIS SIGNIFICANT OTHER BEGAN HAVING ISSUES. UPON ADMIT TO THE NPU THIS NURSE ASKED PT WHAT BROUGHT HIM HERE. PT RESPONDED WITH I ATE A COUPLE BOTTLES OF PILLS, I GUESS THEY THOUGHT I WAS TRYING TO KILL MYSELF. WHEN THIS NURSE ASKED IF THERE WAS A TRIGGER TO HIM TAKING MULTIPLE PILLS PT STATED IT FELT RIGHT AT THE TIME. PT DENIES ANY SUICIDALITY EVER IN HIS LIFE AND STATES THAT THIS WAS NOT AN ATTEMPT ON HIS LIFE. PT IS EVASIVE WITH ADMIT QUESTIONS AND ONLY ANSWERS WITH ONE WORD QUESTIONS WHENEVER POSSIBLE. PT IS CURRENTLY ON DRUG COURT AND IS PARTICIPATING IN OUTPATIENT TREATMENT WITH DEVANTE MELLO. PT CURRENTLY DENIES SI/HI/AH/VH.
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
--- NOTE | 2023-09-08 16:56 | PC.NURSE ---
PT REFUSED ONE TIME DOSE OF WELLBUTRIN SR 150MG. THIS NURSE ATTEMPTED EDUCATION WITH PT ABOUT IMPORTANCE OF MEDICATION HOWEVER, PT WAS RESISTANT TO LEARNING AND CONTINUED TO REFUSE.
[2023-09-09 06:00] VITALS: BP 125/88; PULSE 89; RESP 18; TEMP 36.3; O2SAT 96
[2023-09-09] MEDS: buPROPion XL (24 HR) 150 mg Tablet PO (08:04)
[2023-09-09 14:00] VITALS: BP 97/59; PULSE 67; RESP 16; TEMP 36.9; O2SAT 94
--- NOTE | 2023-09-09 15:43 | P.NPUPN_ITS ---
Subjective NPU 2 Subjective: Patient presented today reporting that he is feeling a little better. He was much more able to discuss the circumstances that led to his admission. He reports that his conflict with his was significant but being unemployed and having significant psychosocial challenges have been overwhelming. He reports that he is feeling more positive and denied any side effects to the medication. Mental Status Exam 2 MSE Comments: This is a tall obese white male in hospital scrubs with limited grooming and eye contact. No abnormal movements except for resolving psychomotor retardation. Mostly cooperative with exam in mild distress. Speech was more normal rate and volume. Mood described as better, affect congruent and less irritable. Thought process organized. Thought content: Patient denied suicidal or homicidal ideation, there were no delusions reported but likely paranoia noted, he denied auditory or visual hallucinations. Attention and concentration appeared limited and memory was somewhat reliable but none were formally tested. He is alert and oriented x 3. Insight and judgment and impulse control are impaired. Vitals/I&O/Wt Last Vital Signs Temp 98.4 F 09/09/23 14:00 Pulse 67 09/09/23 14:00 Resp 16 09/09/23 14:00 BP 97/59 09/09/23 14:00 Pulse Ox 94 09/09/23 14:00 O2 Del Method Room Air 09/09/23 14:00 Weight last 48 hrs Weight 127.006 kg Data NPU 09/08/23 06:46 09/08/23 06:46 A&P Assessment and plan (1) Suicidal ideation: (2) Methamphetamine use disorder, severe: (3) Psychosis: (4) Depression: Plan This is a 38-year-old white male with a long history of addiction and psychosocial challenges who presents over 2 months after his last admission with a reported overdose, depression and frustration with his current circumstances. 1. Hold medications associated with overdose and restart Wellbutrin XL in the morning. 2. Continue every 15 minute checks for safety. 3. Encourage individual, group and milieu therapy. 4. Encourage sober living treatment after discharge at the highest level of care to which he is willing to commit. Involuntary Hold Information 2 96 Hour Hold: 96 Hour Involuntary Admission: Yes 96 Hour Hold Ending Date: 09/12/23 96 Hour Hold Ending Time: 00:01 Attestations NPU 2 Medical Necessity Statement*: Inpatient psychiatric evaluation is medically necessary and the clinically appropriate intervention at this time. We will monitor/initiate medications and make changes as indicated. Likely length of stay 2-4 days. Coding Level of Care Code Acute Code for g Fwd Diagnoses Suicidal ideation R45.851 Methamphetamine use disorder, severe F15.20 Psychosis F29 Depression F32.A
[2023-09-09 19:52] VITALS: BP 130/69; PULSE 73; RESP 17; TEMP 36.7; O2SAT 96
--- NOTE | 2023-09-09 20:38 | P.PN_ITS ---
Subjective 2 Subjective: He reports he is doing well. Denies any pain or discomfort. No nausea vomiting or diarrhea. Vitals/I&O/Wt Last Vital Signs Temp 98.1 F 09/09/23 19:52 Pulse 73 09/09/23 19:52 Resp 17 09/09/23 19:52 BP 130/69 09/09/23 19:52 Pulse Ox 96 09/09/23 19:52 O2 Del Method Room Air 09/09/23 19:52 Physical Exam 2 Const: COMMON NORMALS: patient oriented x3 GENERAL APPEARANCE: cooperative ORIENTATION/CONSCIOUSNESS: Yes awake OTHER: Asleep, wakes up easily to voice. HENMT: COMMON NORMALS: oropharynx normal Neck/C-Spine: COMMON NORMALS: no JVD Resp: COMMON NORMALS: normal respiratory effort and clear to auscultation bilaterally AUSCULTATION: clear to auscultation bilaterally Cardio: COMMON NORMALS: no JVD, regular rhythm, S1 normal heart sound present, S2 normal heart sound present and No murmurs present (Cardio) RHYTHM: regular rhythm HEART SOUNDS: S1 normal heart sound present and S2 normal heart sound present GI: COMMON NORMALS: Normal to inspection, nondistended, normoactive bowel sounds present, Soft to palpation and non-tender PALPATION: Yes Soft to palpation Extremity: COMMON NORMALS: no joint enlargement and no pedal edema Neuro: COMMON NORMALS: patient oriented x3 and moves all extremities Data 09/08/23 06:46 09/08/23 06:46 A&P Assessment and plan (1) Depression: (2) Anxiety: (3) Intentional overdose: Plan Drug overdose Awake and alert after overdose. Reviewed EKGs, QTc without prolongation. CMP reviewed, unremarkable. Continue assessment and management on NPO. Reviewed psychiatry note. Hypertension: Continue lisinopril, doing well with the medication. Will need prescription at discharge. Is noted to have some soft blood pressure 97/59, continue to monitor vitals monitor for any antihypertensive associated hypotension. Should continue to monitor blood pressures and follow-up with primary provider. Follow-up chemistry with primary provider for reassessment of kidney function. Continue cardiac diet. Will sign off at current time, please reconsult in case of any further issues. Attestations 2 Medical Necessity Statement*: Continue admission for assessment management following drug overdose. and High MDM includes described risk of complication, morbidity or mortality of management as documented Diagnoses Depression F32.A Anxiety F41.9 Intentional overdose T50.032H
[2023-09-10 06:00] VITALS: BP 118/70; PULSE 63; RESP 18; TEMP 36.4; O2SAT 97
--- NOTE | 2023-09-10 07:50 | P.NPUPN_ITS ---
Subjective NPU 2 Subjective: Patient presented today reporting that things are going better. Feels very optimistic about discharge tomorrow and has arranged for his mother to pick him up. He reports that he is doing fine with his medication and we agreed that his outpatient provider could consider restarting previous medication or adding different medications moving forward. He denied any side effects to the medication. Mental Status Exam 2 MSE Comments: This is a tall obese white male in hospital scrubs with limited grooming and eye contact. No abnormal movements. Mostly cooperative with exam in no acute distress. Speech was normal rate and volume. Mood described as a lot better, affect congruent. Thought process organized. Thought content: Patient denied suicidal or homicidal ideation, there were no delusions reported or noted, he denied auditory or visual hallucinations. Attention and concentration appeared improved and memory appeared reliable but none were formally tested. He is alert and oriented x 3. Insight and judgment and impulse control are limited, but improving Vitals/I&O/Wt Last Vital Signs Temp 97.6 F 09/10/23 06:00 Pulse 63 09/10/23 06:00 Resp 18 09/10/23 06:00 BP 118/70 09/10/23 06:00 Pulse Ox 97 09/10/23 06:00 O2 Del Method Room Air 09/10/23 06:00 Data NPU 09/08/23 06:46 09/08/23 06:46 A&P Assessment and plan (1) Suicidal ideation: (2) Methamphetamine use disorder, severe: (3) Psychosis: (4) Depression: Plan This is a 38-year-old white male with a long history of addiction and psychosocial challenges who presents over 2 months after his last admission with a reported overdose, depression and frustration with his current circumstances. 1. Hold medications associated with overdose and restarted Wellbutrin XL. 2. Continue every 15 minute checks for safety. 3. Encourage individual, group and milieu therapy. 4. Encourage sober living treatment after discharge at the highest level of care to which he is willing to commit. Involuntary Hold Information 2 96 Hour Hold: 96 Hour Involuntary Admission: Yes 96 Hour Hold Ending Date: 09/12/23 96 Hour Hold Ending Time: 00:01 Attestations NPU 2 Medical Necessity Statement*: Inpatient psychiatric evaluation is medically necessary and the clinically appropriate intervention at this time. We will monitor/initiate medications and make changes as indicated. Likely length of stay 1-3 days. Coding Level of Care Code Acute Code for Chg Fwd Diagnoses Suicidal ideation R45.851 Methamphetamine use disorder, severe F15.20 Psychosis F29 Depression F32.A
[2023-09-10] MEDS: buPROPion XL (24 HR) 150 mg Tablet PO (08:25)
[2023-09-10 14:00] VITALS: BP 113/69; PULSE 65; RESP 16; TEMP 36.6; O2SAT 96
[2023-09-10 20:03] VITALS: BP 138/84; PULSE 69; RESP 20; TEMP 37.3; O2SAT 97
[2023-09-11 06:00] VITALS: BP 110/70; PULSE 61; RESP 18; TEMP 36.5; O2SAT 96
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
[2023-09-11] MEDS: buPROPion XL (24 HR) 150 mg Tablet PO (08:10)
[2023-09-11 08:25] VITALS: BP 110/70; PULSE 61; RESP 18; TEMP 36.5; O2SAT 96
--- NOTE | 2023-09-11 10:01 | PC.NURSE ---
rx delivered by pharmacy. Spoke with patient on timeframe for his mother to be here to pick him up. Pt stated he did not know exactly she had and appointment and then would come and pick him up.
== END 2023-09-11 10:37 | disposition home or self-care (01) | DRG 918 ==
LOC: ER 19:04 → ER IP 21:20 → NP 09-08 06:54
PROVIDERS: Admitting Provider Internal Medicine; Emergency Provider Emergency Medicine; Visit Provider Psychiatry & Neurology Psychiatry
DX: T43.022A Poisoning by tetracyclic antidepressants, intentional self-harm, initial encounter (principal); T43.592A Poisoning by other antipsychotics and neuroleptics, intentional self-harm, initial encounter; Y99.9 Unspecified external cause status; Z63.0 Problems in relationship with spouse or partner; I10 Essential (primary) hypertension; F32.A Depression, unspecified
CPT/HCPCS: 80048; 80053; 80306; 80307; 81003; 82607; 83735; 84100; 84443; 85025; 93005; 96372; 97165; 99285; J1650; J7030

== ENCOUNTER 2024-03-12 18:34 | Outpatient (CLI) | payer BC, MEDICAID, SELFPAY ==
--- NOTE | 2024-03-12 18:43 | XRR_ITS ---
PROCEDURE INFORMATION: Exam: XR Left Knee Exam date and time: 03/12/2024 6:45 PM Age: 38 years old Clinical indication: Left; Patient HX: Chronic lt knee pain; No new injury; HX tendon repair x 20+ yrs ago; Additional info: Chronic left knee pain; HX dislocation of lt knee TECHNIQUE: Imaging protocol: Radiologic exam of the left knee. Views: 3 views. COMPARISON: CR XR knee LT 3V* [id number] 10/23/2022 12:46 PM FINDINGS: Bones/joints: Moderate tricompartmental osteoarthritis with marginal osteophytes. No evidence of acute fracture or subluxation. No evidence of joint effusion. Soft tissues: No gross soft tissue abnormality. XR/XR knee LT 3V* [id number] IMPRESSION: 1. Osteoarthritis without evidence of acute fracture or subluxation.
== END 2024-03-12 18:35 | disposition home or self-care (01) ==
PROVIDERS: PCP Nurse Practitioner Family; Visit Provider Nurse Practitioner Family
DX: Z98.890 Other specified postprocedural states (principal); M17.12 Unilateral primary osteoarthritis, left knee; M25.562 Pain in left knee
CPT/HCPCS: 73562

== ENCOUNTER → 2024-03-15 08:32 | Outpatient (BNVA) | payer BC, MEDICAID, SELFPAY | PROVIDERS: PCP Nurse Practitioner Family; Visit Provider Specialist | DX: M25.562 Pain in left knee (principal); M25.762 Osteophyte, left knee; M25.462 Effusion, left knee | CPT/HCPCS: 73560; 73565 ==